=== PATIENT | female | born 1945 | race Caucasian/White ===

== ENCOUNTER 2020-10-30 16:37 | Inpatient (IN) | payer MEDICARE, BC ==
[~2020-10-30] VITALS: Ht 147.3 cm; Wt 64.7 kg
[2020-10-30] MEDS ORDERED: NS 500 ML IV ONE ×2 (16:50→18:25)
[2020-10-30 17:31] LABS: BASO % 0.1 % (0.0-1.0); EOS % 0.1 % (0.0-3.0); HEMATOCRIT 49.2 % (36.0-47.0); HEMOGLOBIN 15.8 g/dl (12.0-15.5); LYMPH % 5.9 % (24.0-44.0); MEAN CORPUSCULAR HEMOGLOBIN 30.1 pg (27.0-33.0); MEAN CORPUSCULAR HGB CONC 32.1 g/dl (32.0-36.5); MEAN CORPUSCULAR VOLUME 93.7 fl (80.0-96.0); MONO # 0.7 10^3/uL (0.0-0.8); MONO % 4.4 % (2.0-8.0); NEUTROPHILS # 14.4 10^3/uL (1.5-8.5); NEUTROPHILS % 89.1 % (36.0-66.0); PLATELET COUNT, AUTOMATED 443 10^3/uL (150-450); RED BLOOD COUNT 5.25 10^6/uL (4.00-5.40); WHITE BLOOD COUNT 16.1 10^3/uL (4.0-10.0)
--- NOTE | 2020-10-30 17:37 | REP ---
INDICATION: gi bleed COMPARISON: 12/01/2006 TECHNIQUE: Portable AP view of the chest FINDINGS: The mediastinum and cardiac silhouette are stable and within normal limits for portable technique. The lung ryan are clear without acute consolidation, effusion, or pneumothorax. Skeletal structures are intact. IMPRESSION: No acute cardiopulmonary process appreciated. <Electronically signed by Lauri Rosas > 10/30/20 [id number]
[2020-10-30 17:46] LABS: INR 0.94; PROTHROMBIN TIME 12.8 SECONDS (12.5-14.3)
[2020-10-30 17:47] LABS: PARTIAL THROMBOPLASTIN TIME 27.5 SECONDS (24.2-38.5)
[2020-10-30 17:59] LABS: ALBUMIN 4.4 GM/DL (3.2-5.2); ALT/SGPT 14 U/L (12-78); AMYLASE 63 U/L (25-115); BILIRUBIN,DIRECT 0.2 MG/DL (0.0-0.2); BILIRUBIN,TOTAL 0.7 MG/DL (0.2-1.0); CK-MB VALUE MASS 2.5 NG/ML (<3.6); CPK CREATINE PHOSPHOKINASE 35 U/L (26-192); LIPASE 70 U/L (73-393); MB/CK RELATIVE INDEX 7.14 (< OR =4); TOTAL PROTEIN 7.7 GM/DL (6.4-8.2); TROPONIN I < 0.02 NG/ML (< 0.10)
[2020-10-30] MEDS ORDERED: CHLO25TA PO (18:01)
[2020-10-30] MEDS ORDERED: MELO15TA28 PO (18:01)
[2020-10-30] MEDS ORDERED: TRAM50TA2 PO (18:01)
[2020-10-30] MEDS ORDERED: PRAV20TA2 PO (18:01)
[2020-10-30] MEDS ORDERED: ACET-683 PO (18:01)
[2020-10-30] MEDS ORDERED: DILT240C82 PO (18:01)
[2020-10-30 18:06] LABS: RSV AMPLIFICATION NEGATIVE (NEGATIVE)
[2020-10-30] MEDS ORDERED: ISOVUE-370 76% 100ML VIAL As Ordered ONE (18:16)
--- NOTE | 2020-10-30 18:37 | REPVR ---
PROCEDURE INFORMATION: Exam: CT Abdomen And Pelvis With Contrast Exam date and time: 10/30/2020 6:13 PM Age: 74 years old Clinical indication: Abdominal pain; Generalized; Additional info: Gi bleeding , lower abdominal pain TECHNIQUE: Imaging protocol: Computed tomography of the abdomen and pelvis with contrast. Radiation optimization: All CT scans at this facility use at least one of these dose optimization techniques: automated exposure control; mA and/or kV adjustment per patient size (includes targeted exams where dose is matched to clinical indication); or iterative reconstruction. Contrast material: ISOVUE 370; Contrast volume: 100 ml; Contrast route: INTRAVENOUS (IV); COMPARISON: No relevant prior studies available. FINDINGS: Mediastinal space: A small sliding hiatal hernia is present. Liver: 6 mm subcapsular cyst posterior right lobe of the liver. There is a diffuse decrease in hepatic parenchymal density, consistent with steatosis. Gallbladder and bile ducts: Normal. No calcified stones. No ductal dilation. Pancreas: Normal. No ductal dilation. Spleen: Normal. No splenomegaly. Adrenal glands: Normal. No mass. Kidneys and ureters: Simple cyst right kidney measures 4.2 cm. Stomach and bowel: There is a diffusely boggy appearance of the distal transverse and proximal left colon with mural stratification and an ahasutral countour. There are pericolonic inflammatory changes. Findings consistent with acute segmental colitis. No abscess demonstrated. Appendix: No evidence of appendicitis. Intraperitoneal space: Unremarkable. No free air. No significant fluid collection. Vasculature: The aortoiliac vessels demonstrate moderate atherosclerotic calcification. Lymph nodes: Unremarkable. No enlarged lymph nodes. Urinary bladder: Unremarkable as visualized. Reproductive: There has been a hysterectomy. Bones/joints: Anterolisthesis of L4 on L5 and L5 on S1. Severe central spinal stenosis L3-L4, L4-L5. Soft tissues: Unremarkable. IMPRESSION: 1. There is a diffuse decrease in hepatic parenchymal density, consistent with steatosis. 2. A small sliding hiatal hernia is present. 3. There has been a hysterectomy. 4. There is a diffusely boggy appearance of the distal transverse and proximal left colon with mural stratification and an ahasutral countour. There are pericolonic inflammatory changes. Findings consistent with acute segmental colitis. No abscess demonstrated. COMMENTS: Consistent with the [employer]'s Incidental Findings Committee white paper (J Am Tanisah Radiol 2018): Any incidental renal lesion less than 1 cm or classified as too small to characterize, or any incidental cystic renal lesion characterized as simple-appearing, is likely benign. No follow-up imaging is recommended for these lesions per consensus recommendations based on imaging criteria. Electronically signed by: Adrien Person On 10/30/2020 18:38:10 PM
[2020-10-30] MEDS ORDERED: metroNIDAZOLE 500 MG in IV 1 EA IV ONE (18:45)
[2020-10-30] MEDS ORDERED: CIPROFLOXACIN 400 MG in IV 1 EA IV ONE (18:45)
[2020-10-30] MEDS ORDERED: fentaNYL 100 MCG/2 ML INJECTION (J3010) IV ONE (19:00)
[2020-10-30] MEDS ORDERED: NS 1,000 ML IV ONE (19:10)
[2020-10-30] MEDS: NS 1,000 ML IV ONE ×2 (19:17→19:19)
[2020-10-30] MEDS ORDERED: MORPHINE 4 MG/ML 1ML VIAL/SYRINGE (J2270) IV PRN (21:10)
[2020-10-30] MEDS ORDERED: MORPHINE 30 MG TAB **MSIR PO PRN (21:10)
[2020-10-30] MEDS ORDERED: ACETAMINOPHEN 500 MG TAB PO PRN (21:10)
[2020-10-30] MEDS ORDERED: SENOKOT S TAB PO PRN (21:10)
[2020-10-30] MEDS ORDERED: PILL CUTTER 1 EACH XX PRN (21:25)
--- NOTE | 2020-10-30 21:43 | HPEPDOC ---
[facility] Medical History & Physical Date of Admission Oct 30, 2020 Date of Service: Oct 30, 2020 History and Physical CHIEF COMPLAINT: Bilateral lower quadrant abdominal pain with bright red blood per rectum this morning HISTORY OF PRESENT ILLNESS: A 74-year-old female with history of diverticulosis, internal hemorrhoids, hiatal hernia from previous colonoscopy and EGD by Dr. Zepeda in 2007 , not on antiplatelet or anticoagulant, but on meloxicam, presents to emergency room with acute onset bilateral lower quadrant abdominal pain described as sharp and feeling like she is about to have a bowel movement intermittent all morning, with generalized headache, decreased appetite, nausea, 2 episodes of vomiting with the first one being food emesis, nonbloody, non-mucousy, nonprojectile, nonbilious, and the second episode with only saliva, without fever , chills, constipation. Patient denied chills, odynophagia, dysphasia, weight loss, coffee-ground emesis, hematemesis, black tarry stools, dizziness, chest pain, pressure, tightness, shortness of breath but admits to feeling weak with chest heaviness in the substernal area radiating up the neck, but not down the arm, without diaphoresis, feeling of impending doom, and without prior history of CAD, DE, congestive heart failure in the past. Patient denied any nonsteroidal anti-inflammatory use and has no prior history of inflammatory bowel disease, or recent acute infectious diarrhea. She drinks both bottled water and treated city/ [place] water, without recent travel, and denies eating uncooked beef or chicken recently. Patient had no prior episode of the above symptoms in the past and has not sought any medical attention until today when she presented to the emergency room. She denies taking any medications at home for the problems above. In the emergency room, patient was found to have leukocytosis with white count of 16.1, but was afebrile with temperature of 99.5, positive for Systemic inflammatory response with sinus tachycardia, ventricular rate of 110, tachypnea with respiratory rate of 24. She was hemodynamically stable stable with blood pressure of 158/75, hemoglobin of 15.8, and not orthostatic. CT abdomen and pelvis showing colitis. Hospitalist was asked to admit the patient for colitis and lower GI bleed. PAST MEDICAL HISTORY: HTN, asthma, dyslipidemia, [id number] spondilolisthesis,cervical multilevel spondylosis, diverticulosis, hemorrhoids, hiatal hernia, fibroid uterus status post hysterectomy, traumatic injury in 2016 with forehead hematoma and skin laceration, right shoulder bone spur, status post resection, 6 mm subcapsular cyst posterior right lobe of the liver. liver steatosis. Simple cyst right kidney measures 4.2 cm. Severe central spinal stenosis L3-L4, L4-L5 PAST SURGICAL HISTORY: EGD/ colonoscopy by Dr. Zepeda 2007. 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 Healthcare proxy is daughter, Ladonna Riggins. Denies alcohol, tobacco or recreational drug use. Lives with her son. last June FAMILY HISTORY: Noncontributory due to advanced age ALLERGIES: Please see below. REVIEW OF SYSTEMS: 10 point review of systems negative aside from positive findings on history of present illness HOME MEDICATIONS: Please see below. PHYSICAL EXAMINATION: VITAL SIGNS: See below GENERAL APPEARANCE: No pallor, cyanosis, or conversational dyspnea. , Awake, alert, oriented to person, place and time. No respiratory distress, able to complete full sentences HEENT: Face is symmetric. Tongue is midline. No JVD, thyromegaly or cervical lymphadenopathy. No stridor. Pupils equally round, reactive to light and accommodation. Extraocular muscles are intact. Moist mucous membranes, No carotid bruit CARDIOVASCULAR: S1, S2, regular rate and rhythm. No murmurs, rubs or gallops. No S3. No carotid bruit LUNGS: Air entry is equal bilaterally. Bronchial breath sounds. No adventitious breath sounds clear to auscultation bilaterally. No use of respiratory accessory muscles. No kyphoscoliosis ABDOMEN: Distended without fluid wave Positive hypoactive bowel sounds, soft , tender bilateral lower quadrants without rebound or guarding. No hepatosplenomegaly. No abdominal bruit EXTREMITIES: No pitting edema, cyanosis or clubbing SKIN: Warm, dry, well perfused, pink in color without cyanosis LABORATORY DATA: See below. MICROBIOLOGY: See below IMAGING: Exam: CT Abdomen And Pelvis With Contrast Exam date and time: 10/30/2020 6:13 PM Age: 74 years old Clinical indication: Abdominal pain; Generalized; Additional info: Gi bleeding , lower abdominal pain TECHNIQUE: Imaging protocol: Computed tomography of the abdomen and pelvis with contrast. Radiation optimization: All CT scans at this facility use at least one of these dose optimization techniques: automated exposure control; mA and/or kV adjustment per patient size (includes targeted exams where dose is matched to clinical indication); or iterative reconstruction. Contrast material: ISOVUE 370; Contrast volume: 100 ml; Contrast route: INTRAVENOUS (IV); COMPARISON: No relevant prior studies available. FINDINGS: Mediastinal space: A small sliding hiatal hernia is present. Liver: 6 mm subcapsular cyst posterior right lobe of the liver. There is a diffuse decrease in hepatic parenchymal density, consistent with steatosis. Gallbladder and bile ducts: Normal. No calcified stones. No ductal dilation. Pancreas: Normal. No ductal dilation. Spleen: Normal. No splenomegaly. Adrenal glands: Normal. No mass. Kidneys and ureters: Simple cyst right kidney measures 4.2 cm. Stomach and bowel: There is a diffusely boggy appearance of the distal transverse and proximal left colon with mural stratification and an ahasutral countour. There are pericolonic inflammatory changes. Findings consistent with acute segmental colitis. No abscess demonstrated. Appendix: No evidence of appendicitis. Intraperitoneal space: Unremarkable. No free air. No significant fluid collection. Vasculature: The aortoiliac vessels demonstrate moderate atherosclerotic calcification. Lymph nodes: Unremarkable. No enlarged lymph nodes. Urinary bladder: Unremarkable as visualized. Reproductive: There has been a hysterectomy. Bones/joints: Anterolisthesis of L4 on L5 and L5 on S1. Severe central spinal stenosis L3-L4, L4-L5. Soft tissues: Unremarkable. IMPRESSION: 1. There is a diffuse decrease in hepatic parenchymal density, consistent with steatosis. 2. A small sliding hiatal hernia is present. 3. There has been a hysterectomy. 4. There is a diffusely boggy appearance of the distal transverse and proximal left colon with mural stratification and an ahasutral countour. There are pericolonic inflammatory changes. Findings consistent with acute segmental colitis. No abscess demonstrated. COMMENTS: Consistent with the [employer]'s Incidental Findings Committee white paper (J Am Tanisha Radiol 2018): Any incidental renal lesion less than 1 cm or classified as too small to characterize, or any incidental cystic renal lesion characterized as simple-appearing, is likely benign. No follow-up imaging is recommended for these lesions per consensus recommendations based on imaging criteria. Electronically signed by: Adrien Person On 10/30/2020 18:38:10 PM Portable AP view of the chest FINDINGS: The mediastinum and cardiac silhouette are stable and within normal limits for portable technique. The lung ryan are clear without acute consolidation, effusion, or pneumothorax. Skeletal structures are intact. IMPRESSION: No acute cardiopulmonary process appreciated. <Electronically signed by Lauri Rosas > 10/30/20 [id number] MICROBIOLOGY: Please see below. ASSESSMENT/PLAN: A 74-year-old female with history of diverticulosis, internal hemorrhoids, hiatal hernia from previous colonoscopy and EGD by Dr. Zepeda in 2007 , not o n antiplatelet or anticoagulant, but on meloxicam, presents to emergency room with acute onset bilateral lower quadrant abdominal pain described as sharp and feeling like she is about to have a bowel movement intermittent all morning, with generalized headache, decreased appetite, nausea, 2 episodes of vomiting with the first one being food emesis, nonbloody, non-mucousy, nonprojectile, nonbilious, and the second episode with only saliva, without fever , chills, constipation. Patient denied chills, odynophagia, dysphasia, weight loss, coffee-ground emesis, hematemesis, black tarry stools, dizziness, chest pain, pressure, tightness, shortness of breath but admits to feeling weak with chest h eaviness in the substernal area radiating up the neck, but not down the arm, without diaphoresis, feeling of impending doom, and without prior history of CAD, DE, congestive heart failure in the past. Patient denied any nonsteroidal anti-inflammatory use and has no prior history of inflammatory bowel disease, or recent acute infectious diarrhea. She drinks both bottled water and treated city[place] water, without recent travel, and denies eating uncooked beef or chicken recently. Patient had no prior episode of the above symptoms in the past and has not sought any medical attention until today when she presented to the emergency room. She denies taking any medications at home for the problems above. In the emergency room, patient was found to have leukocytosis with white count of 16.1, but was afebrile with temperature of 99.5, positive for Systemic inflammatory response with sinus tachycardia, ventricular rate of 110, tachypnea with respiratory rate of 24. She was hemodynamically stable stable with blood pressure of 158/75, hemoglobin of 15.8, and not orthostatic. CT abdomen and pelvis showing colitis. Hospitalist was asked to admit the patient for colitis and lower GI bleed. Acute Colitis -Patient has been started on IV Cipro and Flagyl, clear liquid diet, advance as tolerated, inflammatory bowel disease serology have been sent as well as GI panel to rule out acute infectious diarrhea. Bacid twice a day with meals to decrease risk of Clostridium infection. Gen. Surgery, Dr. Cisneros, has been consulted but no acute indication for emergent colonoscopy. PRN IV and by mouth pain meds Acute LGIBleed -She is currently hemodynamically stable with hemoglobin of 15. Bleeding is most likely due to colitis, but she does have a history of diverticulosis and hemorrhoidal bleeding in the past. No acute indication for RBC transfusion. Despite complaints of generalized weakness and chest heaviness for possible symptomatic anemia, patient has opted to wait for repeat hemoglobin and hematocrit before consenting to red blood cell transfusion. Acute blood loss -She is currently hemodynamically stable with hemoglobin of 15. Secondary to lower GI bleed from acute colitis. No acute indication for RBC transfusion. Gen. surgery has been consulted but no acute indication for emergent colonoscopy.cycle cardiac markers and hemoglobin and hematocrit every 6 hourly. Lactic Acidosis/ SIRS -Supportive care with IV fluids, IV Cipro and Flagyl. Repeat lactic acid serially until normal HTN -Uncontrolled due to pain. Resumed home medications. Nitroglycerin topically every 4 hourly if systolic pressures>160 with continued complaints of nausea, vomiting , and abdominal pain -prn po and IV pain meds. Dyslipidemia -Check lipid profile in the morning Asthma -No acute symptoms. H/o Diverticulosis -Monitor H&H H/o Hemorrhoids -Monitor H&H, transfuse as needed for symptomatic anemia or hemoglobin less than 8 H/o C3-C5 anterior spondylolisthesis/cervical multilevel spondylosis/chronic neck pain -Avoid nonsteroidal anti-inflammatory meds due to acute GI bleed Liver steatosis/liver cyst -Chronic Severe lumbar spinal stenosis -No acute neurologic complaints or signs of cauda equina. Avoid nonsteroidal anti-inflammatory medications for pain. Diet: Clear liquids CODE STATUS: Full code. Healthcare proxy clare Riggins DVT prophylaxis: Compression stockings due to acute GI bleed Vital Signs Vital Signs Date Time Temp Pulse Resp B/P (MAP) Pulse Ox O2 Delivery O2 Flow Rate FiO2 10/30/20 18:27 176/84 (114) 10/30/20 18:22 96 95 10/30/20 16:44 99.5 24 Room Air Laboratory Data Labs 24H Laboratory Tests 2 10/30/20 16:55: Immature Granulocyte % (Auto) 0.4, Neutrophils (%) (Auto) 89.1H, Lymphocytes (%) (Auto) 5.9L, Monocytes (%) (Auto) 4.4, Eosinophils (%) (Auto) 0.1, Basophils (%) (Auto) 0.1, Neutrophils # (Auto) 14.4H, Lymphocytes # (Auto) 1.0L, Monocytes # (Auto) 0.7, Eosinophils # (Auto) 0.0, Basophils # (Auto) 0.0, Nucleated Red Blood Cells % (auto) 0.0, Prothrombin Time 12.8, Prothromb Time International Ratio 0.94, Activated Partial Thromboplast Time 27.5, Lactic Acid Level 3.5*H, Total Bilirubin 0.7, Direct Bilirubin 0.2, Aspartate Amino Transf (AST/SGOT) 13, Alanine Aminotransferase (ALT/SGPT) 14, Alkaline Phosphatase 92, Total Creatine Kinase 35, Creatine Kinase MB 2.5, Creatine Kinase MB Relative Index 7.14H, Troponin I < 0.02, Total Protein 7.7, Albumin 4.4, Albumin/Globulin Ratio 1.3, Amylase Level 63, Lipase 70L, Coronavirus (COVID-19)(PCR) NEGATIVE, Influenza Type A (RT-PCR) NEGATIVE, Influenza Type B (RT-PCR) NEGATIVE, Respiratory Syncytial Virus (PCR) NEGATIVE 10/30/20 17:14: POC Glucose (Misc Panel) 130H, POC Sodium (Misc Panel) 139, POC Potassium (Misc Panel) 3.5, POC Chloride (Misc Panel) 102, POC Total CO2 (Misc Panel) 27.0, POC Blood Urea Nitrogen (Misc Panel 25, POC Ionized Calcium (Misc Panel) 4.7, POC Creatinine (Misc Panel) 0.7, POC Hematocrit (Misc Panel) 51.0 10/30/20 18:32: Urine Color STRAW, Urine Appearance CLEAR, Urine pH 6.0, Urine Specific [place] 1.018, Urine Protein NEGATIVE, Urine Glucose (UA) NEGATIVE, Urine Ketones NEGA TIVE, Urine Blood 2+H, Urine Nitrite NEGATIVE, Urine Bilirubin NEGATIVE, Urine Urobilinogen 0.2, Urine Leukocyte Esterase TRACEH, Urine WBC (Auto) 1, Urine RBC (Auto) 1, Urine Hyaline Casts (Auto) 0, Urine Bacteria (Auto) NEGATIVE, Urine Squamous Epithelial Cells 1, Urine Sperm (Auto) CBC/BMP Laboratory Tests 10/30/20 16:55 Microbiology Microbiology 10/30/20 Urine Culture, Received Pending 10/30/20 Blood Culture, Received Pending 10/30/20 Blood Culture, Received Pending Home Medications Scheduled Chlorthalidone (Chlorthalidone) 25 Mg Tablet, 25 MG PO DAILY Diltiazem HCl (Diltiazem 24Hr ER) 240 Mg Cap.er.24h, 240 MG PO DAILY Meloxicam (Meloxicam) 15 Mg Tablet, 15 MG PO DAILY Pravastatin Sodium (Pravastatin Sodium) 20 Mg Tablet, 20 MG PO QHS Scheduled PRN Acetaminophen (Acetaminophen) 500 Mg Tablet, 500 MG PO Q6H PRN for PAIN TAKES IN BETWEEN TRAMADOL DOSES Tramadol HCl (Tramadol HCl) 50 Mg Tablet, 50 MG PO TID PRN for PAIN Allergies Coded Allergies: No Known Drug Allergies (Verified Allergy, Unknown, 10/30/20) A-FIB/CHADSVASC A-FIB History Current/History of A-Fib/PAF?: No Current PO Anticoag Therapy: No Age/Risk Factor Scoring CHADSVASC: CHADSVASC Response (Comments) Value Age Risk Factor Age >/= 75 years old 2 Gender Risk Factor Female 1 Hx of CHF No 0 Hx of HTN Yes 1 Hx of Stroke/TIA/or VTE No 0 Hx of Diabetes No 0 Hx of Vascular Disease No 0 Total 4 Treatment Treatment ordered: NONE SCHUYLER STERN MD Oct 30, 2020 19:31
[2020-10-30 22:00] VITALS: BP 184/88
[2020-10-30 22:19] VITALS: BP_SYST 183; BP_SYST 184; BP_SYST 189; BP_DIAS 88; BP_DIAS 95
[2020-10-30] MEDS: PRAVASTATIN 20 MG TAB PO SCH (22:32)
[2020-10-30] MEDS: LACTOBACILLUS ACIDOPHILUS CAP (BACID) PO SCH (22:32)
[2020-10-30] MEDS: NITROGLYCERIN 2% OINT 1 GM *U/D* PKT TOP SCH (22:33)
[2020-10-31 00:31] LABS: HEMATOCRIT 44.4 % (36.0-47.0); HEMOGLOBIN 14.3 g/dl (12.0-15.5)
[2020-10-31 01:22] LABS: CK-MB VALUE MASS 7.3 NG/ML (<3.6); CPK CREATINE PHOSPHOKINASE 584 U/L (26-192); MB/CK RELATIVE INDEX 1.25 (< OR =4); TROPONIN I < 0.02 NG/ML (< 0.10)
[2020-10-31 02:00] VITALS: BP_SYST 110; BP_SYST 119; BP_SYST 120; BP_DIAS 56; BP_DIAS 64
[2020-10-31] MEDS: NITROGLYCERIN 2% OINT 1 GM *U/D* PKT TOP SCH ×6 (02:00→22:00)
[2020-10-31] MEDS: ACETAMINOPHEN TAB 650MG DOSE (2X325MG) PO PRN ×3 (02:15→20:55)
[2020-10-31] MEDS: metroNIDAZOLE 500 MG in IV 1 EA IV SCH ×3 (04:59→20:56)
[2020-10-31 06:00] VITALS: BP 128/61
[2020-10-31] MEDS: CIPROFLOXACIN 400 MG in IV 1 EA IV SCH ×2 (06:07→18:35)
--- NOTE | 2020-10-31 06:29 | ECGEPIP ---
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
[2020-10-31 06:30] LABS: BASO # 0.1 10^3/uL (0.0-0.2); BASO % 0.4 % (0.0-1.0); EOS # 0.1 10^3/uL (0.0-0.5); EOS % 0.7 % (0.0-3.0); HEMOGLOBIN 14.6 g/dl (12.0-15.5); LYMPH # 1.7 10^3/uL (1.5-5.0); LYMPH % 13.2 % (24.0-44.0); MEAN CORPUSCULAR HEMOGLOBIN 30.2 pg (27.0-33.0); MEAN CORPUSCULAR HGB CONC 31.7 g/dl (32.0-36.5); MEAN CORPUSCULAR VOLUME 95.2 fl (80.0-96.0); MONO # 1.1 10^3/uL (0.0-0.8); MONO % 8.9 % (2.0-8.0); NEUTROPHILS # 9.6 10^3/uL (1.5-8.5); NEUTROPHILS % 76.4 % (36.0-66.0); RED BLOOD COUNT 4.83 10^6/uL (4.00-5.40); WHITE BLOOD COUNT 12.5 10^3/uL (4.0-10.0)
--- NOTE | 2020-10-31 06:32 | ECGEPIP ---
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
[2020-10-31 06:53] LABS: BLOOD UREA NITROGEN 17 MG/DL (7-18); CARBON DIOXIDE LEVEL 26 MEQ/L (21-32); CHLORIDE LEVEL 107 MEQ/L (98-107); CREATININE FOR GFR 0.84 MG/DL (0.55-1.30); GLOMERULAR FILTRATION RATE > 60.0 (>39); GLUCOSE, FASTING 111 MG/DL (70-100); POTASSIUM SERUM 3.3 MEQ/L (3.5-5.1); SODIUM LEVEL 140 MEQ/L (136-145)
[2020-10-31 07:00] LABS: PLATELET COUNT, AUTOMATED 300 10^3/uL (150-450)
[2020-10-31] MEDS ORDERED: FLUBLOK(EGG FREE)(QUAD)INFLUENZA VACC 0.5ML SYRINGE 18YRS & OLDER IM ONE (09:00)
[2020-10-31] MEDS ORDERED: PREVNAR 13 VACCINE SYRINGE IM ONE (09:00)
[2020-10-31] MEDS: PANTOPRAZOLE 40MG TAB (PROTONIX) PO SCH (09:17)
[2020-10-31] MEDS: LACTOBACILLUS ACIDOPHILUS CAP (BACID) PO SCH ×2 (09:17→18:35)
--- NOTE | 2020-10-31 10:32 | IPNPDOC ---
Text Note Date of Service The patient was seen on 10/31/20. NOTE SUBJECTIVE: -improved abdominal pain -Some blood mixed in with her stool though some has been brown OBJECTIVE: VITAL SIGNS: See below GENERAL APPEARANCE: NAD, Awake, alert, oriented to person, place and time. Speaking in full sentences HEENT:NCAT, EOMI, MMM, No JVD, thyromegaly or cervical lymphadenopathy. CARDIOVASCULAR: S1, S2, regular rate and rhythm. No murmurs, rubs or gallops. No S3. LUNGS: CTAB, no wheezing, rales or rhonchi, breathing comfortably on room air ABDOMEN: Normoactive bowel sounds, soft, mildly distended, tender bilateral lower quadrants without rebound or guarding. No hepatosplenomegaly. EXTREMITIES: No pitting edema, cyanosis or clubbing SKIN: Warm, dry, well perfused, pink in color without cyanosis, no lesions or rashes LABORATORY DATA: See below. Reviewed Hgb 14.6 WBC 12.5 Cr 0.84 GI panel - negative MICROBIOLOGY: See below IMAGING: Exam: CT Abdomen And Pelvis With Contrast Exam date and time: 10/30/2020 6:13 PM Age: 74 years old Clinical indication: Abdominal pain; Generalized; Additional info: Gi bleeding , lower abdominal pain TECHNIQUE: Imaging protocol: Computed tomography of the abdomen and pelvis with contrast. Radiation optimization: All CT scans at this facility use at least one of these dose optimization techniques: automated exposure control; mA and/or kV adjustment per patient size (includes targeted exams where dose is matched to clinical indication); or iterative reconstruction. Contrast material: ISOVUE 370; Contrast volume: 100 ml; Contrast route: INTRAVENOUS (IV); COMPARISON: No relevant prior studies available. FINDINGS: Mediastinal space: A small sliding hiatal hernia is present. Liver: 6 mm subcapsular cyst posterior right lobe of the liver. There is a diffuse decrease in hepatic parenchymal density, consistent with steatosis. Gallbladder and bile ducts: Normal. No calcified stones. No ductal dilation. Pancreas: Normal. No ductal dilation. Spleen: Normal. No splenomegaly. Adrenal glands: Normal. No mass. Kidneys and ureters: Simple cyst right kidney measures 4.2 cm. Stomach and bowel: There is a diffusely boggy appearance of the distal transverse and proximal left colon with mural stratification and an ahasutral countour. There are pericolonic inflammatory changes. Findings consistent with acute segmental colitis. No abscess demonstrated. Appendix: No evidence of appendicitis. Intraperitoneal space: Unremarkable. No free air. No significant fluid collection. Vasculature: The aortoiliac vessels demonstrate moderate atherosclerotic calcification. Lymph nodes: Unremarkable. No enlarged lymph nodes. Urinary bladder: Unremarkable as visualized. Reproductive: There has been a hysterectomy. Bones/joints: Anterolisthesis of L4 on L5 and L5 on S1. Severe central spinal stenosis L3-L4, L4-L5. Soft tissues: Unremarkable. IMPRESSION: 1. There is a diffuse decrease in hepatic parenchymal density, consistent with steatosis. 2. A small sliding hiatal hernia is present. 3. There has been a hysterectomy. 4. There is a diffusely boggy appearance of the distal transverse and proximal left colon with mural stratification and an ahasutral countour. There are pericolonic inflammatory changes. Findings consistent with acute segmental colitis. No abscess demonstrated. COMMENTS: Consistent with the [employer]'s Incidental Findings Committee white paper (J Am Tanisha Radiol 2018): Any incidental renal lesion less than 1 cm or classified as too small to characterize, or any incidental cystic renal lesion characterized as simple-appearing, is likely benign. No follow-up imaging is recommended for these lesions per consensus recommendations based on imaging criteria. Electronically signed by: Adrien Person On 10/30/2020 18:38:10 PM Portable AP view of the chest FINDINGS: The mediastinum and cardiac silhouette are stable and within normal limits for portable technique. The lung ryan are clear without acute consolidation, effusion, or pneumothorax. Skeletal structures are intact. IMPRESSION: No acute cardiopulmonary process appreciated. <Electronically signed by Lauri Rosas > 10/30/20 [id number] MICROBIOLOGY: Please see below. ASSESSMENT/PLAN: A 74-year-old female with history of diverticulosis, internal hemorrhoids, hiatal hernia, previous colonoscopy and EGD by Dr. Zepeda in 2007 who presented to the ED with acute onset bilateral lower quadrant abdominal pain described as sharp and feeling like she is about to have a bowel movement intermittent all morning, with generalized headache, decreased appetite, nausea, 2 episodes of NBNB and found to have leukocytosis with segmental colitis on CT A/P and LGIB. Acute LGIB: suspect 2/2 ongoing colitis. Episodic. -H/H is stable and wnl -daily CBC -treating colitis with fluids, empiric abx and slow reintroduction of PO Segmental colitis: -GI was negative -however given SIRS with significant leukocytosis, will continue cipro/flagyl -Supportive care with IV fluids, -Repeat lactic acid was wnl -PRN antiemetics and pain meds HTN -continue home medications. Asthma -No acute symptoms. Stable H/o Diverticulosis -Monitor H&H H/o Hemorrhoids -Monitor H&H, transfuse as needed for symptomatic anemia or hemoglobin less than 8 H/o C3-C5 anterior spondylolisthesis/cervical multilevel spondylosis/chronic neck pain -Avoid nonsteroidal anti-inflammatory meds Liver steatosis/liver cyst -Chronic Severe lumbar spinal stenosis -No acute neurologic complaints or signs of cauda equina. Avoid nonsteroidal anti-inflammatory medications for pain. Diet: Clear liquids for now CODE STATUS: Full code. Healthcare proxy water Geena Riggins DVT prophylaxis: Compression stockings VS,Fishbone, I+O VS, Fishbone, I+O Laboratory Tests 10/30/20 16:55 10/31/20 00:19 10/31/20 05:57 Vital Signs Date Time Temp Pulse Resp B/P (MAP) Pulse Ox O2 Delivery O2 Flow Rate FiO2 10/31/20 09:03 116/65 10/31/20 09:00 83 10/31/20 06:00 99.1 18 97 Room Air I&O- Last 24 Hours up to 6 AM 10/31/20 06:00 Intake Total 1515 ml Balance 1515 ml MITCHELL VEGA MD Oct 31, 2020 09:24
[2020-10-31] MEDS: traMADol 50 MG TAB PO PRN ×2 (13:21→20:56)
[2020-10-31 14:37] VITALS: BP 115/64
[2020-10-31] MEDS: PRAVASTATIN 20 MG TAB PO SCH (20:55)
[2020-10-31 22:00] VITALS: BP 146/65
[2020-11-01] MEDS: NITROGLYCERIN 2% OINT 1 GM *U/D* PKT TOP SCH ×5 (02:00→18:00)
--- NOTE | 2020-11-01 03:42 | CR.PDOC ---
General Surgery Consultation Date of Consultation 10/31/20 History and Physical CONSULT REPORT FOR: Hospitalist service REASON FOR CONSULTATION: Lower GI bleed HISTORY OF PRESENT ILLNESS: Patient presented to the emergency room with 1 day history of crampy lower abdominal pain, fecal urgency, bloody loose stool as well as mild episode of nausea and vomiting. She was seen in the emergency room and evaluated and noted to have colitis over the distal transverse colon area. She denies any sick contacts, any uncooked foods. Last colonoscopy was in 2007. Since being admitted, seems to have improved with her abdominal pain, not much further bloody bowel movements and stable hemoglobin and hematocrit. PAST MEDICAL HISTORY: 1. . PAST SURGICAL HISTORY: INCLUDES: 1. . PREVIOUS ANESTHESIA REACTIONS: ALLERGIES: Please see below. FAMILY HISTORY: . HOME MEDICATIONS: Please see below. REVIEW OF SYSTEMS: GENERAL: [Denies chills, reports weight gain, reports feeling febrile yesterday]. HEENT: [Denies blurred vision and double vision. Denies ear symptoms. Denies hoarseness]. NECK: Denies any neck pain]. CARDIOVASCULAR: [Denies chest pain and palpitations]. MUSCULOSKELETAL: [Denies arthralgias, back pain and thrombophlebitis]. SKIN: [Denies rash]. NEUROLOGIC: [Denies headache, stroke and transient ischemic attack]. PSYCHIATRIC: [Denies anxiety and depression]. ENDOCRINE: [Denies thyroid disease]. HEMATOLOGY/ONCOLOGY: [Denies bleeding or clotting disorder]. HEART: [Denies any chest pains, palpitations, paroxysmal dyspnea, orthopnea]. PULMONARY: [Denies chronic cough, dyspnea and wheezing]. GASTROINTESTINAL: [Denies rectal bleeding, family history of colon cancer, constipation, diarrhea, dysphagia, heartburn and jaundice]. GENITOURINARY: [Denies dysuria, frequency, hematuria and nocturia]. ENDOCRINE: [Denies polydipsia, polyphagia, polyuria, heat or cold intolerance]. INFECTIOUS: [Denies any recent upper respiratory tract infection, UTI, need for use of antibiotics]. NUTRITION: [Reports good appetite]. PHYSICAL EXAMINATION: VITALS SIGNS: Please see below. GENERAL APPEARANCE:[Patient seen, laying in bed, awake, alert, and oriented. Comfortable, in no acute distress]. SKIN: [Warm and moist]. HEENT: [Normocephalic, atraumatic. Mckee palpebral conjunctiva, anicteric sclerae. Lips and mucosa appear moist]. NECK: [Supple, no thyromegaly. No obvious jugular venous distention]. LUNGS: [Clear to auscultation bilaterally. No wheezing appreciated]. HEART: [No chest wall abnormalities. Regular rate and rhythm with no murmurs appreciated]. ABDOMEN: Abdomen is , soft, . [No hepatosplenomegaly. No umbilical or groin her niations, nondistended. No noticeable rebound or guarding. No grimacing with palpation. No rebound tenderness. No masses appreciated]. EXTREMITIES: [Extremities have no deformities. No edema identified] ANCILLARIES: . LABORATORY DATA: Please see below. IMAGING STUDIES: . IMPRESSION AND PLAN: Colitis, infectious versus ischemic Patient is not showing any signs of severe inflammatory response to this, hemodynamically stable and clinically is improved with IV fluid hydration and antibiotics. No indication for emergent or urgent colonoscopy at this time. Continue treating conservatively at this time. Patient does not really want any colonoscopy if at all. Once clinically improved and increase diet. No surgical intervention needed for this event. Vital Signs Vital Signs Date Time Temp Pulse Resp B/P (MAP) Pulse Ox O2 Delivery O2 Flow Rate FiO2 11/01/20 02:00 128/63 10/31/20 22:00 98.2 98 18 94 Room Air I&Os I&O- Last 24 Hours up to 6 AM 11/01/20 05:59 Intake Total 600 ml Balance 600 ml Laboratory Data Labs 24H Laboratory Tests 2 10/31/20 05:57: Immature Granulocyte % (Auto) 0.4, Neutrophils (%) (Auto) 76.4H, Lymphocytes (%) (Auto) 13.2L, Monocytes (%) (Auto) 8.9H, Eosinophils (%) (Auto) 0.7, Basophils (%) (Auto) 0.4, Neutrophils # (Auto) 9.6H, Lymphocytes # (Auto) 1.7, Monocytes # (Auto) 1.1H, Eosinophils # (Auto) 0.1, Basophils # (Auto) 0.1, Nucleated Red Blood Cells % (auto) 0.0, Anion Gap 7L, Glomerular Filtration Rate > 60.0, Calcium Level 9.0 CBC/BMP Laboratory Tests 10/31/20 05:57 Microbiology Microbiology 10/30/20 Gastrointestinal Tract Panel (PCR) - Final, Complete 10/30/20 Urine Culture - Final, Complete Lactobacillus Species 10/30/20 Blood Culture - Preliminary, Resulted No growth after 24 hours . All specim... 10/30/20 Blood Culture - Preliminary, Resulted No growth after 24 hours . All specim... Home Medications Scheduled Chlorthalidone (Chlorthalidone) 25 Mg Tablet, 25 MG PO DAILY, (Reported) Diltiazem HCl (Diltiazem 24Hr ER) 240 Mg Cap.er.24h, 240 MG PO DAILY, (Reported) Meloxicam (Meloxicam) 15 Mg Tablet, 15 MG PO DAILY, (Reported) Pravastatin Sodium (Pravastatin Sodium) 20 Mg Tablet, 20 MG PO QHS, (Reported) Scheduled PRN Acetaminophen (Acetaminophen) 500 Mg Tablet, 500 MG PO Q6H PRN for PAIN, (Reported) TAKES IN BETWEEN TRAMADOL DOSES Tramadol HCl (Tramadol HCl) 50 Mg Tablet, 50 MG PO TID PRN for PAIN, (Reported) Allergies Coded Allergies: No Known Drug Allergies (Verified Allergy, Unknown, 10/30/20) JADYN SANCHEZ MD Nov 01, 2020 03:42
[2020-11-01] MEDS: metroNIDAZOLE 500 MG in IV 1 EA IV SCH ×2 (05:00→12:30)
[2020-11-01 06:00] VITALS: BP 113/56
[2020-11-01] MEDS: CIPROFLOXACIN 400 MG in IV 1 EA IV SCH (06:03)
[2020-11-01 06:14] LABS: BASO # 0.1 10^3/uL (0.0-0.2); BASO % 0.4 % (0.0-1.0); EOS # 0.3 10^3/uL (0.0-0.5); EOS % 2.1 % (0.0-3.0); HEMATOCRIT 42.4 % (36.0-47.0); HEMOGLOBIN 13.5 g/dl (12.0-15.5); LYMPH % 15.4 % (24.0-44.0); MEAN CORPUSCULAR HEMOGLOBIN 30.3 pg (27.0-33.0); MEAN CORPUSCULAR HGB CONC 31.8 g/dl (32.0-36.5); MEAN CORPUSCULAR VOLUME 95.3 fl (80.0-96.0); MONO # 1.3 10^3/uL (0.0-0.8); MONO % 9.9 % (2.0-8.0); NEUTROPHILS # 9.2 10^3/uL (1.5-8.5); NEUTROPHILS % 71.6 % (36.0-66.0); PLATELET COUNT, AUTOMATED 294 10^3/uL (150-450); RED BLOOD COUNT 4.45 10^6/uL (4.00-5.40); WHITE BLOOD COUNT 12.9 10^3/uL (4.0-10.0)
[2020-11-01 06:33] LABS: BLOOD UREA NITROGEN 13 MG/DL (7-18); CALCIUM LEVEL 8.3 MG/DL (8.8-10.2); CARBON DIOXIDE LEVEL 29 MEQ/L (21-32); CHLORIDE LEVEL 108 MEQ/L (98-107); CREATININE FOR GFR 0.84 MG/DL (0.55-1.30); GLOMERULAR FILTRATION RATE > 60.0 (>39); GLUCOSE, FASTING 94 MG/DL (70-100); POTASSIUM SERUM 3.2 MEQ/L (3.5-5.1); SODIUM LEVEL 142 MEQ/L (136-145)
[2020-11-01] MEDS: LACTOBACILLUS ACIDOPHILUS CAP (BACID) PO SCH ×2 (08:05→18:02)
[2020-11-01] MEDS: PANTOPRAZOLE 40MG TAB (PROTONIX) PO SCH (08:08)
[2020-11-01] MEDS ORDERED: POTASSIUM CHLORIDE 10 MEQ SR TABLET PO ONE (09:00)
[2020-11-01 09:13] LABS: C REACTIVE PROTEIN QUANTITATIV 1.86 MG/DL (0.00-0.30)
--- NOTE | 2020-11-01 11:54 | IPNPDOC ---
Text Note Date of Service The patient was seen on 11/01/20. NOTE General Surgery Dr Cisneros. The patient is a 74-year-old female admitted with a 1 day history of crampy lower abdominal pain, fecal urgency, bloody loose stool as well as mild episode of nausea and vomiting. She was seen in the emergency room and evaluated and noted to have colitis over the distal transverse colon area. Last colonoscopy was in 2007. The patient states she has had some slight cramping overnight but denies abdominal pain otherwise. She has had 1 bowel movement last evening and one this morning brown, diarrhea. The patient reports no further bleeding or blood in the stool. Tolerating soft diet. Afebrile, VSS. Gen. NAD, sitting up in bed. MMM Lungs are clear to auscultation. S1-S2 regular rate and rhythm. Abdomen soft, nondistended, nontender. No guarding or rebound. No grimacing. Extremities well perfused with no edema. WBC 12.9, hemoglobin 13.5, platelet count 294. CRP added to a.m. labs. Assessment/plan Colitis. The patient's symptoms have improved with IV fluid rehydration and antibiotics. Currently the patient is tolerating soft diet. Patient is reviewed and examined as per Dr. Cisneros this morning. CRP added to this a.m.'s labs. Continue with soft diet. No surgical intervention would be recommended at this time. No need for urgent colonoscopy. Continue antibiotics as per hospitalist service. VS,Fishbone, I+O VS, Fishbone, I+O Laboratory Tests 11/01/20 05:32 Vital Signs Date Time Temp Pulse Resp B/P (MAP) Pulse Ox O2 Delivery O2 Flow Rate FiO2 11/01/20 10:00 132/68 11/01/20 08:08 79 11/01/20 06:00 97.7 18 96 Room Air I&O- Last 24 Hours up to 6 AM 11/01/20 06:00 Intake Total 700 ml Balance 700 ml Hilaria Thao Nov 01, 2020 11:54
[2020-11-01] MEDS: traMADol 50 MG TAB PO PRN ×2 (12:32→20:16)
--- NOTE | 2020-11-01 13:16 | IPNPDOC ---
Text Note Date of Service The patient was seen on 11/01/20. NOTE SUBJECTIVE: -improved abdominal pain -1 slighlty blood steaked BM yesterday AM. Unfortunately with escalation of diet has been having nonbloody diarrhea OBJECTIVE: VITAL SIGNS: See below GENERAL APPEARANCE: NAD, Awake, alert, oriented to person, place and time. Speaking in full sentences HEENT:NCAT, EOMI, MMM, No JVD, thyromegaly or cervical lymphadenopathy. CARDIOVASCULAR: S1, S2, regular rate and rhythm. No murmurs, rubs or gallops. No S3. LUNGS: CTAB, no wheezing, rales or rhonchi, breathing comfortably on room air ABDOMEN: Normoactive bowel sounds, soft, soft, mildly tender bilateral lower quadrants without rebound or guarding. No hepatosplenomegaly. EXTREMITIES: No pitting edema, cyanosis or clubbing SKIN: Warm, dry, well perfused, pink in color without cyanosis, no lesions or rashes LABORATORY DATA: See below. Reviewed Hgb 13.5 WBC 12.9 Cr 0.84 K 3.2 (repleted) GI panel - negative UCx - lactobacillus IMAGING: Exam: CT Abdomen And Pelvis With Contrast Exam date and time: 10/30/2020 6:13 PM Age: 74 years old Clinical indication: Abdominal pain; Generalized; Additional info: Gi bleeding , lower abdominal pain TECHNIQUE: Imaging protocol: Computed tomography of the abdomen and pelvis with contrast. Radiation optimization: All CT scans at this facility use at least one of these dose optimization techniques: automated exposure control; mA and/or kV adjustment per patient size (includes targeted exams where dose is matched to clinical indication); or iterative reconstruction. Contrast material: ISOVUE 370; Contrast volume: 100 ml; Contrast route: INTRAVENOUS (IV); COMPARISON: No relevant prior studies available. FINDINGS: Mediastinal space: A small sliding hiatal hernia is present. Liver: 6 mm subcapsular cyst posterior right lobe of the liver. There is a diffuse decrease in hepatic parenchymal density, consistent with steatosis. Gallbladder and bile ducts: Normal. No calcified stones. No ductal dilation. Pancreas: Normal. No ductal dilation. Spleen: Normal. No splenomegaly. Adrenal glands: Normal. No mass. Kidneys and ureters: Simple cyst right kidney measures 4.2 cm. Stomach and bowel: There is a diffusely boggy appearance of the distal transverse and proximal left colon with mural stratification and an ahasutral countour. There are pericolonic inflammatory changes. Findings consistent with acute segmental colitis. No abscess demonstrated. Appendix: No evidence of appendicitis. Intraperitoneal space: Unremarkable. No free air. No significant fluid collection. Vasculature: The aortoiliac vessels demonstrate moderate atherosclerotic calcification. Lymph nodes: Unremarkable. No enlarged lymph nodes. Urinary bladder: Unremarkable as visualized. Reproductive: There has been a hysterectomy. Bones/joints: Anterolisthesis of L4 on L5 and L5 on S1. Severe central spinal stenosis L3-L4, L4-L5. Soft tissues: Unremarkable. IMPRESSION: 1. There is a diffuse decrease in hepatic parenchymal density, consistent with steatosis. 2. A small sliding hiatal hernia is present. 3. There has been a hysterectomy. 4. There is a diffusely boggy appearance of the distal transverse and proximal left colon with mural stratification and an ahasutral countour. There are pericolonic inflammatory changes. Findings consistent with acute segmental colitis. No abscess demonstrated. COMMENTS: Consistent with the [employer]'s Incidental Findings Committee white paper (J Am Tanisha Radiol 2018): Any incidental renal lesion less than 1 cm or classified as too small to characterize, or any incidental cystic renal lesion characterized as simple-appearing, is likely benign. No follow-up imaging is recommended for these lesions per consensus recommendations based on imaging criteria. Electronically signed by: Adrien Person On 10/30/2020 18:38:10 PM Portable AP view of the chest FINDINGS: The mediastinum and cardiac silhouette are stable and within normal limits for portable technique. The lung ryan are clear without acute consolidation, effusion, or pneumothorax. Skeletal structures are intact. IMPRESSION: No acute cardiopulmonary process appreciated. <Electronically signed by Lauri Rosas > 10/30/20 [id number] MICROBIOLOGY: Please see below. ASSESSMENT/PLAN: A 74-year-old female with history of diverticulosis, internal hemorrhoids, hiatal hernia, previous colonoscopy and EGD by Dr. Zepeda in 2007 who presented to the ED with acute onset bilateral lower quadrant abdominal pain described as sharp and feeling like she is about to have a bowel movement int ermittent all morning, with generalized headache, decreased appetite, nausea, 2 episodes of NBNB and found to have leukocytosis with segmental colitis on CT A/P and LGIB. Acute LGIB: suspect 2/2 ongoing colitis. Episodic. -H/H is stable and wnl -daily CBC -treating colitis with fluids, empiric abx and slow reintroduction of PO, now of soft diet Segmental colitis: -GI panel was negative -however given SIRS with significant leukocytosis, will continue cipro/flagyl for now. will switch to PO cipro today -Supportive care with IV fluids -Repeat lactic acid was wnl -PRN antiemetics and pain meds, all PO HTN -continue home medications. Asthma -No acute symptoms. Stable H/o Diverticulosis -Monitor H&H H/o Hemorrhoids -Monitor H&H, transfuse as needed for symptomatic anemia or hemoglobin less than 8 H/o C3-C5 anterior spondylolisthesis/cervical multilevel spondylosis/chronic neck pain -Avoid nonsteroidal anti-inflammatory meds Liver steatosis/liver cyst -Chronic Severe lumbar spinal stenosis -No acute neurologic complaints or signs of cauda equina. Avoid nonsteroidal anti-inflammatory medications for pain. Diet: Clear liquids for now CODE STATUS: Full code. Healthcare proxy [facility] Geena Metzman DVT prophylaxis: Compression stockings VS,Fishbone, I+O VS, Fishbone, I+O Laboratory Tests 11/01/20 05:32 Vital Signs Date Time Temp Pulse Resp B/P (MAP) Pulse Ox O2 Delivery O2 Flow Rate FiO2 11/01/20 08:08 79 141/78 11/01/20 06:00 97.7 18 96 Room Air I&O- Last 24 Hours up to 6 AM 11/01/20 06:00 Intake Total 700 ml Balance 700 ml MITCHELL VEGA MD Nov 01, 2020 08:58
[2020-11-01 14:00] VITALS: BP 126/64
[2020-11-01] MEDS: ACETAMINOPHEN TAB 650MG DOSE (2X325MG) PO PRN ×2 (15:45→20:16)
[2020-11-01] MEDS: CIPROFLOXACIN 500MG TABLET PO SCH (18:02)
[2020-11-01] MEDS: PRAVASTATIN 20 MG TAB PO SCH (20:15)
[2020-11-01 22:00] VITALS: BP 135/70
[2020-11-02 05:34] LABS: BASO % 0.5 % (0.0-1.0); EOS # 0.4 10^3/uL (0.0-0.5); EOS % 4.3 % (0.0-3.0); HEMATOCRIT 44.5 % (36.0-47.0); HEMOGLOBIN 13.9 g/dl (12.0-15.5); LYMPH # 1.7 10^3/uL (1.5-5.0); LYMPH % 21.1 % (24.0-44.0); MEAN CORPUSCULAR HEMOGLOBIN 30.2 pg (27.0-33.0); MEAN CORPUSCULAR HGB CONC 31.2 g/dl (32.0-36.5); MEAN CORPUSCULAR VOLUME 96.7 fl (80.0-96.0); MONO # 0.8 10^3/uL (0.0-0.8); MONO % 9.8 % (2.0-8.0); NEUTROPHILS # 5.2 10^3/uL (1.5-8.5); NEUTROPHILS % 64.2 % (36.0-66.0); PLATELET COUNT, AUTOMATED 276 10^3/uL (150-450); WHITE BLOOD COUNT 8.1 10^3/uL (4.0-10.0)
[2020-11-02] MEDS: traMADol 50 MG TAB PO PRN (05:38)
[2020-11-02] MEDS: CIPROFLOXACIN 500MG TABLET PO SCH (05:38)
[2020-11-02] MEDS: ACETAMINOPHEN TAB 650MG DOSE (2X325MG) PO PRN (05:39)
[2020-11-02 06:03] LABS: BLOOD UREA NITROGEN 11 MG/DL (7-18); CALCIUM LEVEL 8.9 MG/DL (8.8-10.2); CARBON DIOXIDE LEVEL 25 MEQ/L (21-32); CHLORIDE LEVEL 109 MEQ/L (98-107); CREATININE FOR GFR 0.82 MG/DL (0.55-1.30); GLOMERULAR FILTRATION RATE > 60.0 (>39); GLUCOSE, FASTING 122 MG/DL (70-100); POTASSIUM SERUM 3.3 MEQ/L (3.5-5.1); SODIUM LEVEL 142 MEQ/L (136-145)
[2020-11-02 06:12] VITALS: BP 147/78
[2020-11-02] MEDS ORDERED: RISATAB3 PO (08:01)
[2020-11-02] MEDS ORDERED: CIPR-249 PO (08:01)
[2020-11-02 08:15] VITALS: BP 138/65
[2020-11-02] MEDS ORDERED: PANT40TA29 PO (08:22)
[2020-11-02] MEDS: LACTOBACILLUS ACIDOPHILUS CAP (BACID) PO SCH (08:50)
[2020-11-02] MEDS: PANTOPRAZOLE 40MG TAB (PROTONIX) PO SCH (08:50)
[2020-11-02 08:52] VITALS: BP 138/65
--- NOTE | 2020-11-02 12:10 | DS.PDOC ---
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 Known Simple cyst right kidney measuring 4.2 cm. Severe central spinal stenosis L3-L4, L4-L5 with chronic back pain COMPLICATIONS/CHIEF COMPLAINT: Lower Gi Bleed. HISTORY OF PRESENT ILLNESS: A 74-year-old W with a history of diverticulosis, internal hemorrhoids, hiatal hernial, last colonoscopy and EGD by Dr. Zepeda in 2007 , not on antiplatelet or anticoagulant, but on meloxicam, who presented to the emergency room with acute onset bilateral lower quadrant abdominal pain described as sharp and feeling like she was about to have a bowel movement intermittent all morning, with generalized headache, decreased appetite, nausea, 2 episodes of vomiting with the first one being food emesis, nonbloody, non-mucousy, nonprojectile, nonbilious, and the second episode with only saliva, without fever , chills, constipation. She then reported bowel movements that were loose and with bloody elements thereafter.She otherwise denied chills, odynophagia, dysphasia, weight loss, coffee-ground emesis, hematemesis, black tarry stools, dizziness, chest pain, pressure, tightness, shortness of breath. HOSPITAL COURSE: In the emergency room, patient was found to have leukocytosis with white count of 16.1, but was afebrile with temperature of 99.5, positive for Systemic inflammatory response with sinus tachycardia, ventricular rate of 110, tachypnea with respiratory rate of 24. She was hemodynamically stable stable with blood pressure of 158/75, hemoglobin of 15.8, and not orthostatic. CT abdomen and pelvis showed some segmental colitis and was admitted to medicine for LGIB and colitis. She had a GI panel that was negative common pathogens and was placed on IV cipro and flagyl. Surgery was consulted for LGIB and on stable H/H and remission of bleeding, surgery recommended medical management without need for urgent scoping. Her leukocytosis resolved after 2d of antibiotics, symptoms improved but she had some persistent discomfort pre-defecation as she started resuming PO. She was switched to PO cipro that she tolerated well and will now be discharged home to complete a cipro course for 10 more day for the colitis, continue her home tramadol that is sufficient of pain and chronic back pain complaints and protonix given the history of a hiatal hernia. DISCHARGE MEDICATIONS: Please see below. ALLERGIES: Please see below. PHYSICAL EXAMINATION ON DISCHARGE: VITAL SIGNS: Please see below. VITAL SIGNS: See below GENERAL APPEARANCE: NAD, Awake, alert, oriented to person, place and time. Speaking in full sentences HEENT:NCAT, EOMI, MMM, No JVD, thyromegaly or cervical lymphadenopathy. CARDIOVASCULAR: S1, S2, regular rate and rhythm. No murmurs, rubs or gallops. No S3. LUNGS: CTAB, no wheezing, rales or rhonchi, breathing comfortably on room air ABDOMEN: Normoactive bowel sounds, soft, soft, nontender abdomen, without rebound or guarding. No hepatosplenomegaly. EXTREMITIES: No pitting edema, cyanosis or clubbing SKIN: Warm, dry, well perfused, pink in color without cyanosis, no lesions or rashes LABORATORY DATA: Please see below. IMAGING: Exam: CT Abdomen And Pelvis With Contrast Exam date and time: 10/30/2020 6:13 PM Age: 74 years old Clinical indication: Abdominal pain; Generalized; Additional info: Gi bleeding , lower abdominal pain TECHNIQUE: Imaging protocol: Computed tomography of the abdomen and pelvis with contrast. Radiation optimization: All CT scans at this facility use at least one of these dose optimization techniques: automated exposure control; mA and/or kV adjustment per patient size (includes targeted exams where dose is matched to clinical indication); or iterative reconstruction. Contrast material: ISOVUE 370; Contrast volume: 100 ml; Contrast route: INTRAVENOUS (IV); COMPARISON: No relevant prior studies available. FINDINGS: Mediastinal space: A small sliding hiatal hernia is present. Liver: 6 mm subcapsular cyst posterior right lobe of the liver. There is a diffuse decrease in hepatic parenchymal density, consistent with steatosis. Gallbladder and bile ducts: Normal. No calcified stones. No ductal dilation. Pancreas: Normal. No ductal dilation. Spleen: Normal. No splenomegaly. Adrenal glands: Normal. No mass. Kidneys and ureters: Simple cyst right kidney measures 4.2 cm. Stomach and bowel: There is a diffusely boggy appearance of the distal transverse and proximal left colon with mural stratification and an ahasutral countour. There are pericolonic inflammatory changes. Findings consistent with acute segmental colitis. No abscess demonstrated. Appendix: No evidence of appendicitis. Intraperitoneal space: Unremarkable. No free air. No significant fluid collection. Vasculature: The aortoiliac vessels demonstrate moderate atherosclerotic calcification. Lymph nodes: Unremarkable. No enlarged lymph nodes. Urinary bladder: Unremarkable as visualized. Reproductive: There has been a hysterectomy. Bones/joints: Anterolisthesis of L4 on L5 and L5 on S1. Severe central spinal stenosis L3-L4, L4-L5. Soft tissues: Unremarkable. IMPRESSION: 1. There is a diffuse decrease in hepatic parenchymal density, consistent with steatosis. 2. A small sliding hiatal hernia is present. 3. There has been a hysterectomy. 4. There is a diffusely boggy appearance of the distal transverse and proximal left colon with mural stratification and an ahasutral countour. There are pericolonic inflammatory changes. Findings consistent with acute segmental colitis. No abscess demonstrated. COMMENTS: Consistent with the [employer]'s Incidental Findings Committee white paper (J Am Tanisha Radiol 2018): Any incidental renal lesion less than 1 cm or classified as too small to characterize, or any incidental cystic renal lesion characterized as simple-appearing, is likely benign. No follow-up imaging is recommended for these lesions per consensus recommendations based on imaging criteria. Electronically signed by: Adrien Person On 10/30/2020 18:38:10 PM Portable AP view of the chest FINDINGS: The mediastinum and cardiac silhouette are stable and within normal limits for portable technique. The lung ryan are clear without acute consolidation, effusion, or pneumothorax. Skeletal structures are intact. IMPRESSION: No acute cardiopulmonary process appreciated. PROGNOSIS: Good ACTIVITY: As tolerated DIET: regular DISCHARGE PLAN: 10d of cipro, protonic 40mg daily, PCP follow up within 1 week. DISPOSITION: Home DISCHARGE INSTRUCTIONS: 10d of cipro, protonic 40mg daily, PCP follow up within 1 week. ITEMS TO FOLLOWUP ON ON OUTPATIENT: Acute segmental colitis resolution - f/u with PCP DISCHARGE CONDITION: Stable TIME SPENT ON DISCHARGE: 45 minutes. Vital Signs/I&Os Vital Signs Date Time Temp Pulse Resp B/P (MAP) Pulse Ox O2 Delivery O2 Flow Rate FiO2 11/02/20 06:12 97.8 73 17 147/78 (101) 96 Room Air I&O- Last 24 Hours up to 6 AM 11/02/20 06:00 Intake Total 800 ml Balance 800 ml Laboratory Data Labs 24H Laboratory Tests 2 11/02/20 05:17: Immature Granulocyte % (Auto) 0.1, Neutrophils (%) (Auto) 64.2, Lymphocytes (%) (Auto) 21.1L, Monocytes (%) (Auto) 9.8H, Eosinophils (%) (Auto) 4.3H, Basophils (%) (Auto) 0.5, Neutrophils # (Auto) 5.2, Lymphocytes # (Auto) 1.7, Monocytes # (Auto) 0.8, Eosinophils # (Auto) 0.4, Basophils # (Auto) 0.0, Nucleated Red Blood Cells % (auto) 0.0, Anion Gap 8, Glomerular Filtration Rate > 60.0, Calcium Level 8.9 CBC/BMP Laboratory Tests 11/02/20 05:17 Microbiology Microbiology 10/30/20 Gastrointestinal Tract Panel (PCR) - Final, Complete 10/30/20 Urine Culture - Final, Complete Lactobacillus Species 10/30/20 Blood Culture - Preliminary, Resulted No Growth after 48 hours. All Specime... 10/30/20 Blood Culture - Preliminary, Resulted No Growth after 48 hours. All Specime... Discharge Medications Scheduled Chlorthalidone (Chlorthalidone) 25 Mg Tablet, 25 MG PO DAILY, (Reported) Ciprofloxacin HCl (Cipro) 500 Mg Tablet, 500 MG PO BID@06,18 Diltiazem HCl (Diltiazem 24Hr ER) 240 Mg Cap.er.24h, 240 MG PO DAILY, (Reported) L.acidoph/L.bulg/B.bif/S.therm (Khloe-Bid Caplet) 1 Each Tablet, 1 EA PO BIDWM Meloxicam (Meloxicam) 15 Mg Tablet, 15 MG PO DAILY, (Reported) Pantoprazole Sodium (Pantoprazole Sodium) 40 Mg Tablet.dr, 40 MG PO DAILY Pravastatin Sodium (Pravastatin Sodium) 20 Mg Tablet, 20 MG PO QHS, (Reported) Scheduled PRN Acetaminophen (Acetaminophen) 500 Mg Tablet, 500 MG PO Q6H PRN for PAIN, (Reported) TAKES IN BETWEEN TRAMADOL DOSES Tramadol HCl (Tramadol HCl) 50 Mg Tablet, 50 MG PO TID PRN for PAIN, (Reported) Allergies Coded Allergies: No Known Drug Allergies (Verified Allergy, Unknown, 10/30/20) MITCHELL VEGA MD Nov 02, 2020 08:22
== END 2020-11-02 11:41 | disposition home or self-care (01) | DRG 392 ==
LOC: M ED 16:37 → M ED INP 19:08 → ENRESERV 19:33 → M MS5PR 22:07
PROVIDERS: ADMIT General Practice; ATTEND Internal Medicine
DX: K52.9 Noninfective gastroenteritis and colitis, unspecified (principal); D62 Acute posthemorrhagic anemia; E87.2 Acidosis; K64.8 Other hemorrhoids; K44.9 Diaphragmatic hernia without obstruction or gangrene; I10 Essential (primary) hypertension; J45.909 Unspecified asthma, uncomplicated; E78.5 Hyperlipidemia, unspecified; M47.892 Other spondylosis, cervical region; K57.30 Diverticulosis of large intestine without perforation or abscess without bleeding; Z79.899 Other long term (current) drug therapy

== ENCOUNTER 2021-03-28 20:27 | Emergency (ER) | payer BC, MEDICARE ==
[~2021-03-28] VITALS: Ht 144.8 cm; Wt 68.4 kg
[~2021-03-28 20:27] MED LIST: ACET-683 PO; CHLO25TA PO; CIPR-249 PO; DILT240C82 PO; MELO15TA28 PO; PANT40TA29 PO; PRAV20TA2 PO; RISATAB3 PO; TRAM50TA2 PO
[2021-03-28 21:39] LABS: BASO % 0.4 % (0.0-1.0); EOS # 0.2 10^3/uL (0.0-0.5); EOS % 2.9 % (0.0-3.0); HEMATOCRIT 48.7 % (36.0-47.0); HEMOGLOBIN 15.6 g/dl (12.0-15.5); LYMPH # 1.4 10^3/uL (1.5-5.0); LYMPH % 16.8 % (24.0-44.0); MEAN CORPUSCULAR HEMOGLOBIN 29.5 pg (27.0-33.0); MEAN CORPUSCULAR VOLUME 92.1 fl (80.0-96.0); MONO % 12.3 % (2.0-8.0); NEUTROPHILS # 5.4 10^3/uL (1.5-8.5); NEUTROPHILS % 67.4 % (36.0-66.0); PLATELET COUNT, AUTOMATED 297 10^3/uL (150-450); RED BLOOD COUNT 5.29 10^6/uL (4.00-5.40)
[2021-03-28 21:50] LABS: INR 0.94
[2021-03-28 22:11] VITALS: BP 178/87
[2021-03-28] MEDS ORDERED: LABETALOL 100MG/20ML VIAL IV STA (22:11)
[2021-03-28] MEDS ORDERED: ASPIRIN 81 MG CHEW TABLET PO ONE (22:15)
[2021-03-28] MEDS ORDERED: CHLORTHALIDONE 25 MG TAB PO ONE (22:15)
[2021-03-28 22:20] LABS: ALBUMIN 4.3 GM/DL (3.2-5.2); ALT/SGPT 16 U/L (12-78); BILIRUBIN,DIRECT 0.1 MG/DL (0.0-0.2); BILIRUBIN,TOTAL 0.6 MG/DL (0.2-1.0); BLOOD UREA NITROGEN 21 MG/DL (7-18); CALCIUM LEVEL 9.5 MG/DL (8.8-10.2); CARBON DIOXIDE LEVEL 24 MEQ/L (21-32); CHLORIDE LEVEL 109 MEQ/L (98-107); CK-MB VALUE MASS 2.5 NG/ML (<3.6); CPK CREATINE PHOSPHOKINASE 68 U/L (26-192); CREATININE FOR GFR 0.71 MG/DL (0.55-1.30); GLOMERULAR FILTRATION RATE > 60.0 (>39); GLUCOSE, FASTING 96 MG/DL (70-100); LIPASE 96 U/L (73-393); MB/CK RELATIVE INDEX 3.68 (< OR =4); POTASSIUM SERUM 4.4 MEQ/L (3.5-5.1); SODIUM LEVEL 142 MEQ/L (136-145); TOTAL PROTEIN 7.9 GM/DL (6.4-8.2); TROPONIN I < 0.02 NG/ML (< 0.10)
--- NOTE | 2021-03-28 22:45 | REPVR ---
PROCEDURE INFORMATION: Exam: XR Chest Exam date and time: 03/28/2021 9:21 PM Age: 75 years old Clinical indication: Pain; Other: Not specifiied; Additional info: Chest pain TECHNIQUE: Imaging protocol: XR of the chest. Views: 1 view. COMPARISON: CR Chest, 1 view 10/30/2020 5:27 PM FINDINGS: Lungs: There are no interval infiltrates. Pleural spaces: Unremarkable. No pleural effusion. No pneumothorax. Heart/Mediastinum: The heart and mediastinum are unchanged in view of AP and lordotic projection. Diaphragm: Elevation of the right hemidiaphragm is again noted. Bones/joints: Chronic rotator cuff tears of the shoulders bilaterally. IMPRESSION: Stable chest since 10/30/2020. No acute interval process is identified. Electronically signed by: Venkata Poe On 03/28/2021 22:44:47 PM
[2021-03-28 22:54] LABS: APPEARANCE, URINE CLEAR (CLEAR); BACTERIA, URINE AUTO NEGATIVE (NEGATIVE); BILIRUBIN, URINE AUTO NEGATIVE (NEGATIVE); BLOOD, URINE BLOOD NEGATIVE (NEGATIVE); COLOR, URINE STRAW (YELLOW); GLUCOSE, URINE (UA) AUTO NEGATIVE (NEGATIVE); KETONE, URINE AUTO NEGATIVE (NEGATIVE); LEUKOCYTE ESTERASE, URINE AUTO NEGATIVE (NEGATIVE); MUCUS, URINE SMALL (NEGATIVE); NITRITE, URINE AUTO NEGATIVE (NEGATIVE); PROTEIN, URINE AUTO NEGATIVE (NEGATIVE); RBC, URINE AUTO 2 /HPF (0-3); SPECIFIC GRAVITY URINE AUTO 1.008 (1.002-1.035); SQUAMOUS EPITHELIAL CELL UR AU 0 /HPF (0-6); UROBILINOGEN, URINE AUTO 0.2 mg/dL (0.0-2.0); WBC, URINE AUTO 0 /HPF (0-3)
[2021-03-29 00:59] LABS: CK-MB VALUE MASS 2.3 NG/ML (<3.6); CPK CREATINE PHOSPHOKINASE 43 U/L (26-192); MB/CK RELATIVE INDEX 5.35 (< OR =4); TROPONIN I < 0.02 NG/ML (< 0.10)
[2021-03-29 01:45] VITALS: BP 135/78
--- NOTE | 2021-03-29 05:51 | ECGEPIP ---
[facility] - ED Test Date: 2021-03-28 Pat Name: PIERRE VICENTE Department: Room: - Gender: Female [employer]: [facility] : 1945 Requested By: RICCO Jackson Order Number: [id number] Reading MD: Kristopher Morris Measurements Intervals Josephine Rate: 85 P: 26 ME: 150 QRS: -13 QRSD: 62 T: -1 QT: 388 QTc: 461 Interpretive Statements Normal sinus rhythm BASELINE ARTIFACT AFFECTS INTERPRETATION SIMILAR TO 10/30/20 Electronically Signed on 03-29-2021 5:51:12 EDT by Kristopher Morris
== END 2021-03-29 02:10 | disposition home or self-care (01) ==
LOC: M ED 20:27
DX: R07.9 Chest pain, unspecified (principal); R53.1 Weakness; R42 Dizziness and giddiness; I10 Essential (primary) hypertension; J45.909 Unspecified asthma, uncomplicated; E78.5 Hyperlipidemia, unspecified; Z79.899 Other long term (current) drug therapy; Z87.19 Personal history of other diseases of the digestive system

== ENCOUNTER 2021-06-11 13:03 | Emergency (ER) | payer BC ==
[~2021-06-11] VITALS: Ht 144.8 cm; Wt 68.4 kg
--- OUTSIDE RECORDS SUMMARY | 2021-06-11 13:09 | CCD ---
Author Author [facility] Organization [facility] Address Unknown Phone Unavailable Care Team Providers Care Blanket Inspector Name Role Phone Renetta Wilcox MD Unavailable Unavailable Renetta Wilcox MD Unavailable Unavailable Renetta Wilcox MD Unavailable Unavailable Renetta Wilcox MD Unavailable Unavailable Renetta Wilcox MD Unavailable Unavailable Renetta Wilcox MD Unavailable Unavailable Renetta Wilcox MD Unavailable Unavailable Renetta Wilcox MD Unavailable Unavailable Renetta Wilcox MD Unavailable Unavailable Renetta Wilcox MD Unavailable Unavailable Renetta Wilcox MD Unavailable Unavailable Renetta Wilcox MD Unavailable Unavailable Renetta Wilcox MD Unavailable Unavailable Renetta Wilcox MD Unavailable Unavailable Renetta Wilcox MD Unavailable Unavailable Renetta Wilcox MD Unavailable Unavailable Renetta Wilcox MD Unavailable Unavailable Renetta Wilcox MD Unavailable Unavailable Renetta Wilcox MD Unavailable Unavailable Renetta Wilcox MD Unavailable Unavailable Renetta Wilcox MD Unavailable Unavailable Renetta Wilcox MD Unavailable Unavailable Renetta Wilcox MD Unavailable Unavailable Renetta Wilcox MD Unavailable Unavailable Renetta Wilcox MD Unavailable Unavailable Renetta Wilcox MD Unavailable Unavailable Renetta Wilcox MD Unavailable Unavailable Renetta Wilcox MD Unavailable Unavailable Renetta Wilcox MD Unavailable Unavailable Renetta Wilcox MD Unavailable Unavailable Renetta Wilcox MD Unavailable Unavailable Renetta Wilcox MD Unavailable Unavailable Renetta Wilcox MD Unavailable Unavailable Renetta Wilcox MD Unavailable Unavailable Renetta Wilcox MD Unavailable Unavailable Wilcox, Renetta Schaeffer MD Unavailable Unavailable Wilcox, Renetta Schaeffer MD Unavailable Unavailable Wilcox, Renetta Schaeffer MD Unavailable Unavailable Renetta Wilcox MD Unavailable Unavailable Renetta Wilcox MD Unavailable Unavailable Renetta Wilcox MD Unavailable Unavailable Renetta Wilcox MD Unavailable Unavailable Wilcox, Renetta Schaeffer MD Unavailable Unavailable Wilcox, Renetta Schaeffer MD Unavailable Unavailable Wilcox, Renetta Schaeffer MD Unavailable Unavailable Wilcox, Renetta Schaeffer MD Unavailable Unavailable Wilcox, Renetta Schaeffer MD Unavailable Unavailable Wilcox, Renetta Schaeffer MD Unavailable Unavailable Wilcox, Renetta Schaeffer MD Unavailable Unavailable Renetta Wilcox MD Unavailable Unavailable Renetta Wilcox MD Unavailable Unavailable Wilcox, Renetta Schaeffer MD Unavailable Unavailable Wilcox, Renetta Schaeffer MD Unavailable Unavailable Wilcox, Renetta Schaeffer MD Unavailable Unavailable Wilcox, Renetta Schaeffer MD Unavailable Unavailable Wilcox, Renetta Schaeffer MD Unavailable Unavailable Wilcox, Renetta Schaeffer MD Unavailable Unavailable Renetta Wilcox MD Unavailable Unavailable Renetta Wilcox MD Unavailable Unavailable Renetta Wilcox MD Unavailable Unavailable Renetta Wilcox MD Unavailable Unavailable Renetta Wilcox MD Unavailable Unavailable Wilcox, Renetta Schaeffer MD Unavailable Unavailable WilcoxRenetta MD Unavailable Unavailable WilcoxRenetta MD Unavailable Unavailable WilcoxRenetta MD Unavailable Unavailable Renetta Wilcox MD Unavailable Unavailable Renetta Wilcox MD Unavailable Unavailable Renetta Wilcox MD Unavailable Unavailable Renetta Wilcox MD Unavailable Unavailable Renetta Wilcox MD Unavailable Unavailable Renetta Wilcox MD Unavailable Unavailable Renetta Wilcox MD Unavailable Unavailable Renetta Wilcox MD Unavailable Unavailable Renetta Wilcox MD Unavailable Unavailable Renetta Wilcox MD Unavailable Unavailable Renetta Wilcox MD Unavailable Unavailable Renetta Wilcox MD Unavailable Unavailable Renetta Wilcox MD Unavailable Unavailable eRnetta Wilcox MD Unavailable Unavailable Renetta Wilcox MD Unavailable Unavailable Renetta Wilcox MD Unavailable Unavailable Renetta Wilcox MD Unavailable Unavailable Renetta Wilcox MD Unavailable Unavailable Renetta Wilcox MD Unavailable Unavailable Renetta Wilcox MD Unavailable Unavailable Renetta Wilcox MD Unavailable Unavailable Renetta Wilcox MD Unavailable Unavailable Renetta Wilcox MD Unavailable Unavailable Renetta Wilcox MD Unavailable Unavailable Renetta Wilcox MD Unavailable Unavailable Renetta Wilcox MD Unavailable Unavailable Renetta Wilcox MD Unavailable Unavailable Jovanni, A Fany IN STORE MARKETING REPRESENTATIVE Unavailable Unavailable Jovanni, A Fany IN STORE MARKETING REPRESENTATIVE Unavailable Unavailable Jovanni, A Fany IN STORE MARKETING REPRESENTATIVE Unavailable Unavailable Jovanni, A Fany IN STORE MARKETING REPRESENTATIVE Unavailable Unavailable Jovanni, A Fany IN STORE MARKETING REPRESENTATIVE Unavailable Unavailable Jovanni, A Fany IN STORE MARKETING REPRESENTATIVE Unavailable Unavailable Jovanni, A Fany IN STORE MARKETING REPRESENTATIVE Unavailable Unavailable Jovanni, A Fany IN STORE MARKETING REPRESENTATIVE Unavailable Unavailable Jovanni, A Fany IN STORE MARKETING REPRESENTATIVE Unavailable Unavailable Jovanni, A Fany IN STORE MARKETING REPRESENTATIVE Unavailable Unavailable Jovanni, A Fany IN STORE MARKETING REPRESENTATIVE Unavailable Unavailable Jovanni, A Fany IN STORE MARKETING REPRESENTATIVE Unavailable Unavailable Jovanni, A Fany IN STORE MARKETING REPRESENTATIVE Unavailable Unavailable Jovanni, A Fany IN STORE MARKETING REPRESENTATIVE Unavailable Unavailable Jovanni, A Fany IN STORE MARKETING REPRESENTATIVE Unavailable Unavailable Jovanni, A Fany IN STORE MARKETING REPRESENTATIVE Unavailable Unavailable Jovanni, A Fany IN STORE MARKETING REPRESENTATIVE Unavailable Unavailable Jovanni, A Fany IN STORE MARKETING REPRESENTATIVE Unavailable Unavailable Jovanni, A Fany IN STORE MARKETING REPRESENTATIVE Unavailable Unavailable Jovanni, A Fany IN STORE MARKETING REPRESENTATIVE Unavailable Unavailable Jovanni, A Fany IN STORE MARKETING REPRESENTATIVE Unavailable Unavailable Jovanni, A Fany IN STORE MARKETING REPRESENTATIVE Unavailable Unavailable Jovanni, A Fany IN STORE MARKETING REPRESENTATIVE Unavailable Unavailable Jovanni, A Fany IN STORE MARKETING REPRESENTATIVE Unavailable Unavailable Jovanni, A Fany IN STORE MARKETING REPRESENTATIVE Unavailable Unavailable Jovanni, A Fany IN STORE MARKETING REPRESENTATIVE Unavailable Unavailable Jovanni, A Fany IN STORE MARKETING REPRESENTATIVE Unavailable Unavailable Jovanni, A Fany IN STORE MARKETING REPRESENTATIVE Unavailable Unavailable Jovanni, A Fany IN STORE MARKETING REPRESENTATIVE Unavailable Unavailable Jovanni, A Fany IN STORE MARKETING REPRESENTATIVE Unavailable Unavailable Jovanni, A Fany IN STORE MARKETING REPRESENTATIVE Unavailable Unavailable Jovanni, A Fany IN STORE MARKETING REPRESENTATIVE Unavailable Unavailable Jovanni, A Fany IN STORE MARKETING REPRESENTATIVE Unavailable Unavailable Jovanni, A Fany IN STORE MARKETING REPRESENTATIVE Unavailable Unavailable Jovanni, A Fany IN STORE MARKETING REPRESENTATIVE Unavailable Unavailable Jovanni, A Fany IN STORE MARKETING REPRESENTATIVE Unavailable Unavailable Jovanni, A Fany IN STORE MARKETING REPRESENTATIVE Unavailable Unavailable Jovanni, A Fany IN STORE MARKETING REPRESENTATIVE Unavailable Unavailable Jovanni, A Fany IN STORE MARKETING REPRESENTATIVE Unavailable Unavailable Jovanni, A Fany IN STORE MARKETING REPRESENTATIVE Unavailable Unavailable Jovanni, A Fany IN STORE MARKETING REPRESENTATIVE Unavailable Unavailable Jovanni, A Fany IN STORE MARKETING REPRESENTATIVE Unavailable Unavailable Jovanni, A Fany IN STORE MARKETING REPRESENTATIVE Unavailable Unavailable Jovanni, A Fany IN STORE MARKETING REPRESENTATIVE Unavailable Unavailable Jovanni, A Fany IN STORE MARKETING REPRESENTATIVE Unavailable Unavailable Jovanni, A Fany IN STORE MARKETING REPRESENTATIVE Unavailable Unavailable Re-disclosure Warning The records that you are about to access may contain information from federally-assisted alcohol or drug abuse programs. If such information is present, then the following federally mandated warning applies: This information has been disclosed to you from records protected by federal confidentiality rules (42 CFR part 2). The federal rules prohibit you from making any further disclosure of this information unless further disclosure is expressly permitted by the written consent of the person to whom it pertains or as otherwise permitted by 42 CFR part 2. A general authorization for the release of medical or other information is NOT sufficient for this purpose. The Federal rules restrict any use of the information to criminally investigate or prosecute any alcohol or drug abuse patient.The records that you are about to access may contain highly sensitive health information, the redisclosure of which is protected by Article 27-F of the [facility] Public Health law. If you continue you may have access to information: Regarding HIV / AIDS; Provided by facilities licensed or operated by the [facility] Office of Mental Health; or Provided by the [facility] Office for People With Developmental Disabilities. If such information is present, then the following [facility] mandated warning applies: This information has been disclosed to you from confidential records which are protected by state law. State law prohibits you from making any further disclosure of this information without the specific written consent of the person to whom it pertains, or as otherwise permitted by law. Any unauthorized further disclosure in violation of state law may result in a fine or [place] [facility] sentence or both. A general authorization for the release of medical or other information is NOT sufficient authorization for further disc losure. Allergies and Adverse Reactions Type Description Substance Reaction Status Data Source(s ) Food allergy No Known Food Allergies No Known Food Allergies [facility] Drug allergy ciprofloxacin Ciprofloxacin rash head to toe SV [facility] Family History Family Member Name Family Member Gender Family Member Status Date o f Status Description Data Source(s) Unknown Condition [facility] Unknown Condition [facility] Unknown Condition [facility] Unknown Condition [facility] Encounters Encounter Providers Location Date Indications Data Source(s ) Outpatient Attender: Fany Baig NP 05/31/2021 11:41:00 AM EDT R25.2,I10 [facility] R25.2,I10 Outpatient Attender: Fany Baig NPReferrer: Fany segal NP 05/11/2021 12:53:00 PM EDT - 05/11/2021 01:44:00 PM EDT [facility] Outpatient Attender: Fany Baig NPReferrer: Fany segal NP 03/31/2021 12:54:00 PM EDT - 03/31/2021 02:22:00 PM EDT [facility] Outpatient Attender: Fany Baig NPReferrer: Fany segal IN STORE MARKETING REPRESENTATIVE 11/08/2020 02:10:00 PM EDT - 11/08/2020 02:41:00 PM EDT [facility] Outpatient Attender: Fany Jovanni IN STORE MARKETING REPRESENTATIVE 05/04/2020 11:38:00 AM EDT I10,R13.10 [facility] I10,R13.10 Outpatient Attender: Fany Baig NPReferrer: Maksim Wilcox MD 05/04/2020 10:42:00 AM EDT - 05/04/2020 11:33:00 AM EDT [facility] Immunizations Vaccine Date Status Description Data Source(s) COVID-19 VACCINE Moderna 11/19/2020 12:00:00 AM EDT completed [facility] Vaccine Series Complete: YESThis Data wa s Submitted to [facility] Via [employer]. COVID-19 VACCINE Moderna 10/08/2020 12:00:00 AM EST completed [facility] Vaccine Series Complete: NOThis Data was Submitted to [facility] [employer]. Medications Medication Brand Name Start Date Product Form Dose Route Admi nistrative Instructions Pharmacy Instructions Status Indications Reaction Description Data Source(s) 24 HR Diltiazem Hydrochloride 240 MG Extended Release Oral Capsule DILTIAZEM HCL 06/05/2021 12:00:00 AM EDT capsule,extended release 24hr 90 TAKE ONE CAPSULE BY MOUTH EVERY DAY TAKE ONE CAPSULE BY MOUTH EVERY DAY SOLD: 06/07/2021 [facility] meloxicam 7.5 MG Oral Tablet MELOXICAM 06/01/2021 12:00:00 AM EDT tabl et 30 TAKE ONE TABLET BY MOUTH EVERY DAY TAKE ONE TABLET BY MOUTH EVERY DAY SOLD: 06/07/2021 [facility] 25 mg 05/10/2021 12:00:00 AM EDT tablet 90 TAKE ONE TABLET BY MOUTH EVERY DAY TAKE ONE TABLET BY MOUTH EVERY DAY SOLD: 05/12/2021 [facility] 15 mg 04/23/2021 12:00:00 AM EDT tablet 90 TAKE ONE TABLET BY MOUTH EVERY DAY TAKE ONE TABLET BY MOUTH EVERY DAY SOLD: 04/25/2021 [facility] 50 mg 04/23/2021 12:00:00 AM EDT tablet 90 TAKE ONE TABLET BY MOUTH THREE TIMES A DAY NEEDED - MAXIMUM DAILY DOSE = 3 TAKE ONE TABLET BY MOUTH THREE TIMES A DAY NEEDED - MAXIMUM DAILY DOSE = 3 SOLD: 04/25/2021 [facility] 50 mg 04/23/2021 12:00:00 AM EDT tablet 90 TAKE ONE TABLET BY MOUTH THREE TIMES A DAY NEEDED - MAXIMUM DAILY DOSE = 3 TAKE ONE TABLET BY MOUTH THREE TIMES A DAY NEEDED - MAXIMUM DAILY DOSE = 3 SOLD: 05/28/2021 [facility] meloxicam 15 MG Oral Tablet Meloxicam Meloxicam 12/27/2020 02:40 :48 PM EDT 15 MG active [facility] tramadol hydrochloride 50 MG Oral Tablet Tramadol Tramadol 12/27/2020 02:40:41 PM EDT 50 MG active [facility] 15 mg 12/27/2020 12:00:00 AM EDT tablet 90 TAKE ONE TABLET BY MOUTH EVERY DAY TAKE ONE TABLET BY MOUTH EVERY DAY SOLD: 12/30/2020 [facility] 50 mg 12/27/2020 12:00:00 AM EDT tablet 90 TAKE ONE TABLET BY MOUTH THREE TIMES A DAY NEEDED MAXIMUM DAILY DOSE = 3 TAKE ONE TABLET BY MOUTH THREE TIMES A DAY NEEDED MAXIMUM DAILY DOSE = 3 SOLD: 03/25/2021 [facility] 50 mg 12/27/2020 12:00:00 AM EDT tablet 90 TAKE ONE TABLET BY MOUTH THREE TIMES A DAY NEEDED MAXIMUM DAILY DOSE = 3 TAKE ONE TABLET BY MOUTH THREE TIMES A DAY NEEDED MAXIMUM DAILY DOSE = 3 SOLD: 02/03/2021 [facility] 50 mg 12/27/2020 12:00:00 AM EDT tablet 90 TAKE ONE TABLET BY MOUTH THREE TIMES A DAY NEEDED MAXIMUM DAILY DOSE = 3 TAKE ONE TABLET BY MOUTH THREE TIMES A DAY NEEDED MAXIMUM DAILY DOSE = 3 SOLD: 12/30/2020 [facility] Metronidazole 500 MG Oral Tablet Metronidazole 11/11/2020 01:45:09 PM EDT 500 MG [facility] Metronidazole 500 MG Oral Tablet METRONIDAZOLE 11/11/2020 12:0 0:00 AM EDT tablet 14 TAKE ONE TABLET BY MOUTH TWICE A DAY 7 TAKE ONE TABLET BY MOUTH TWICE A DAY 7 SOLD: 11/12/2020 [facility] Chlorthalidone 25 MG Oral Tablet Chlorthalidone 11/09/2020 01:57:15 PM EDT 25 MG active [facility] 25 mg 11/09/2020 12:00:00 AM EDT tablet 45 TAKE ONE-HALF TABLET BY MOUTH EVERY DAY TAKE ONE-HALF TABLET BY MOUTH EVERY DAY SOLD: 11/12/2020 [facility] 25 mg 11/09/2020 12:00:00 AM EDT tablet 45 TAKE ONE-HALF TABLET BY MOUTH EVERY DAY TAKE ONE-HALF TABLET BY MOUTH EVERY DAY SOLD: 04/08/2021 [facility] Brenden-SWuTherm (Khloe-Bid) 1 billion cell- 25 0 mg tablet 11/08/2020 02:14:54 PM EDT active [facility] Ruiz-JaiBif-S.Therm (Khloe-Bid) 1 billion cell- 25 0 mg tablet 11/08/2020 02:14:54 PM EDT active [facility] pantoprazole 40 MG Delayed Release Oral Tablet Pantoprazole Pantoprazole 11/08/2020 02:14:45 PM EDT active [facility] pantoprazole 40 MG Delayed Release Oral Tablet Pantoprazole Pantoprazole 11/08/2020 02:14:45 PM EDT active [facility] Ciprofloxacin Hcl 11/08/2020 02:14:26 PM EDT active [facility] Ciprofloxacin Hcl 11/08/2020 02:14:26 PM EDT completed [facility] 1 billion cell- 250 mg 11/02/2020 12:00:00 AM EST tablet 30 TAKE ONE TABLET BY MOUTH TWICE A DAY WITH MEALS TAKE ONE TABLET BY MOUTH TWICE A DAY WITH MEALS SOLD: 12/16/2020 [facility] 500 mg 11/02/2020 12:00:00 AM EST tablet 20 TAKE ONE TABLET BY MOUTH TWICE A DAY AT 0600 AND 1800 TAKE ONE TABLET BY MOUTH TWICE A DAY AT 0600 AND 1800 SOLD: 11/02/2020 [facility] 1 billion cell- 250 mg 11/02/2020 12:00:00 AM EST tablet 60 TAKE ONE TABLET BY MOUTH TWICE A DAY WITH MEALS TAKE ONE TABLET BY MOUTH TWICE A DAY WITH MEALS SOLD: 11/02/2020 [facility] pantoprazole 40 MG Delayed Release Oral Tablet PANTOPRAZOLE SODIUM 11/02/2020 12:00:00 AM EST tablet,delayed release (DR/EC) 30 T KATHLEEN ONE TABLET BY MOUTH EVERY DAY TAKE ONE TABLET BY MOUTH EVERY DAY SOLD: 11/03/2020 [facility] meloxicam 15 MG Oral Tablet Meloxicam Meloxicam 09/06/2020 03:01 :42 PM EST 15 MG completed [facility] meloxicam 15 MG Oral Tablet Meloxicam Meloxicam 09/06/2020 03:01 :42 PM EST 15 MG active [facility] tramadol hydrochloride 50 MG Oral Tablet Tramadol Tramadol 09/06/2020 07:44:32 AM EST 50 MG active [facility] tramadol hydrochloride 50 MG Oral Tablet Tramadol Tramadol 09/06/2020 07:44:32 AM EST 50 MG completed [facility] 50 mg 09/06/2020 12:00:00 AM EST tablet 90 TAKE ONE TABLET BY MOUTH THREE TIMES A DAY NEEDED MAXIMUM DAILY DOSE = 3 TABLETS TAKE ONE TABLET BY MOUTH THREE TIMES A DAY NEEDED MAXIMUM DAILY DOSE = 3 TABLETS SOLD: 11/23/2020 [facility] 15 mg 09/06/2020 12:00:00 AM EST tablet 90 TAKE ONE TABLET BY MOUTH EVERY DAY TAKE ONE TABLET BY MOUTH EVERY DAY SOLD: 09/09/2020 [facility] 50 mg 09/06/2020 12:00:00 AM EST tablet 90 TAKE ONE TABLET BY MOUTH THREE TIMES A DAY NEEDED MAXIMUM DAILY DOSE = 3 TABLETS TAKE ONE TABLET BY MOUTH THREE TIMES A DAY NEEDED MAXIMUM DAILY DOSE = 3 TABLETS SOLD: 10/22/2020 [facility] 50 mg 09/06/2020 12:00:00 AM EST tablet 90 TAKE ONE TABLET BY MOUTH THREE TIMES A DAY NEEDED MAXIMUM DAILY DOSE = 3 TABLETS TAKE ONE TABLET BY MOUTH THREE TIMES A DAY NEEDED MAXIMUM DAILY DOSE = 3 TABLETS SOLD: 09/09/2020 [facility] tramadol hydrochloride 50 MG Oral Tablet Tramadol Tramadol 05/04/2020 11:34:37 AM EDT 50 MG completed [facility] tramadol hydrochloride 50 MG Oral Tablet Tramadol Tramadol 05/04/2020 11:34:37 AM EDT 50 MG completed [facility] Pravastatin Sodium 20 MG Oral Tablet Pravastatin 05/04/2020 11:34: 13 AM EDT 20 MG active [facility] Pravastatin Sodium 20 MG Oral Tablet Pravastatin 05/04/2020 11:34: 13 AM EDT 20 MG active [facility] meloxicam 15 MG Oral Tablet Meloxicam Meloxicam 05/04/2020 11:34 :03 AM EDT 15 MG completed [facility] meloxicam 15 MG Oral Tablet Meloxicam Meloxicam 05/04/2020 11:34 :03 AM EDT 15 MG completed [facility] 24 HR Diltiazem Hydrochloride 240 MG Ext ended Release Oral Capsule Diltiazem Hcl (Cardizem Cd) 240 mg capsule,extended release 24hr Diltiazem Hcl (Cardizem Cd) 240 mg capsule,extended release 24hr 05/04/2020 11:33:56 AM EDT 240 MG active [facility] 24 HR Diltiazem Hydrochloride 240 MG Ext ended Release Oral Capsule Diltiazem Hcl (Cardizem Cd) 240 mg capsule,extended release 24hr Diltiazem Hcl (Cardizem Cd) 240 mg capsule,extended release 24hr 05/04/2020 11:33:56 AM EDT 240 MG active [facility] Estrogens, Conjugated (MCC) 0.625 MG/ML Vaginal Cream Conjugated Estrogens Conjugated Estrogens 05/04/2020 11:33:52 AM EDT 0.3125 MG active [facility] Estrogens, Conjugated (MCC) 0.625 MG/ML Vaginal Cream Conjugated Estrogens Conjugated Estrogens 05/04/2020 11:33:52 AM EDT 0.3125 MG active [facility] Omeprazole Magnesium 05/04/2020 11:32:47 AM EDT 20 MG [facility] Omeprazole Magnesium 05/04/2020 11:32:47 AM EDT 20 MG [facility] Omeprazole Magnesium 05/04/2020 11:32:47 AM EDT 20 MG active [facility] 50 mg 05/04/2020 12:00:00 AM EDT tablet 90 TAKE ONE TABLET BY MOUTH THREE TIMES A DAY NEEDED, MAXIMUM DAILY DOSE = 3 TAKE ONE TABLET BY MOUTH THREE TIMES A DAY NEEDED, MAXIMUM DAILY DOSE = 3 SOLD: 05/05/2020 [facility] 24 HR Diltiazem Hydrochloride 240 MG Extended Release Oral Capsule DILTIAZEM HCL 05/04/2020 12:00:00 AM EDT capsule,extended release 24hr 90 TAKE ONE CAPSULE BY MOUTH EVERY DAY TAKE ONE CAPSULE BY MOUTH EVERY DAY SOLD: 12/16/2020 [facility] 24 HR Diltiazem Hydrochloride 240 MG Extended Release Oral Capsule DILTIAZEM HCL 05/04/2020 12:00:00 AM EDT capsule,extended release 24hr 90 TAKE ONE CAPSULE BY MOUTH EVERY DAY TAKE ONE CAPSULE BY MOUTH EVERY DAY SOLD: 09/02/2020 [facility] 20 mg 05/04/2020 12:00:00 AM EDT capsule,delayed release (DR/EC) 180 TAKE ONE CAPSULE BY MOUTH TWICE A DAY TAKE ONE CAPSULE BY MOUTH TWICE A DAY SOLD: 03/25/2021 [facility] 20 mg 05/04/2020 12:00:00 AM EDT capsule,delayed release (DR/EC) 180 TAKE ONE CAPSULE BY MOUTH TWICE A DAY TAKE ONE CAPSULE BY MOUTH TWICE A DAY SOLD: 05/05/2020 [facility] 20 mg 05/04/2020 12:00:00 AM EDT tablet 90 TAKE ONE TABLET BY MOUTH EVERY DAY TAKE ONE TABLET BY MOUTH EVERY DAY SOLD: 04/08/2021 [facility] 240 mg 05/04/2020 12:00:00 AM EDT capsule,extended releas e 24hr 90 TAKE ONE CAPSULE BY MOUTH EVERY DAY TAKE ONE CAPSULE BY MOUTH EVERY DAY SOLD: 05/05/2020 [facility] 50 mg 05/04/2020 12:00:00 AM EDT tablet 90 TAKE ONE TABLET BY MOUTH THREE TIMES A DAY NEEDED, MAXIMUM DAILY DOSE = 3 TAKE ONE TABLET BY MOUTH THREE TIMES A DAY NEEDED, MAXIMUM DAILY DOSE = 3 SOLD: 07/30/2020 [facility] 15 mg 05/04/2020 12:00:00 AM EDT tablet 90 TAKE ONE TABLET BY MOUTH EVERY DAY TAKE ONE TABLET BY MOUTH EVERY DAY SOLD: 05/05/2020 [facility] 20 mg 05/04/2020 12:00:00 AM EDT tablet 90 TAKE ONE TABLET BY MOUTH EVERY DAY TAKE ONE TABLET BY MOUTH EVERY DAY SOLD: 05/05/2020 [facility] 24 HR Diltiazem Hydrochloride 240 MG Extended Release Oral Capsule DILTIAZEM HCL 05/04/2020 12:00:00 AM EDT capsule,extended release 24hr 90 TAKE ONE CAPSULE BY MOUTH EVERY DAY TAKE ONE CAPSULE BY MOUTH EVERY DAY SOLD: 03/25/2021 [facility] 0.625 mg/gram 05/04/2020 12:00:00 AM EDT cream 30 INSERT 1/2 APPLICATORFUL VAGINALLY EVERY EVENING INSERT 1/2 APPLICATORFUL VAGINALLY EVERY EVENING SOLD: 05/05/2020 [facility] 50 mg 05/04/2020 12:00:00 AM EDT tablet 90 TAKE ONE TABLET BY MOUTH THREE TIMES A DAY NEEDED, MAXIMUM DAILY DOSE = 3 TAKE ONE TABLET BY MOUTH THREE TIMES A DAY NEEDED, MAXIMUM DAILY DOSE = 3 SOLD: 06/07/2020 [facility] tramadol hydrochloride 50 MG Oral Tablet Tramadol Tramadol 01/02/2020 08:47:31 AM EDT 50 MG completed [facility] tramadol hydrochloride 50 MG Oral Tablet Tramadol Tramadol 01/02/2020 08:47:31 AM EDT 50 MG completed [facility] meloxicam 15 MG Oral Tablet Meloxicam Meloxicam 12/30/2019 04:13 :49 PM EDT 15 MG completed [facility] meloxicam 15 MG Oral Tablet Meloxicam Meloxicam 12/30/2019 04:13 :49 PM EDT 15 MG completed [facility] Azithromycin (Zithromax) 250 mg tablet 11/21/2019 12:47:52 PM ED T 0 completed [facility] Azithromycin (Zithromax) 250 mg tablet 11/21/2019 12:47:52 PM ED T 0 completed [facility] Azithromycin (Zithromax) 250 mg tablet 11/21/2019 12:47:52 PM ED T 0 completed [facility] Pravastatin Sodium 20 MG Oral Tablet Pravastatin 09/18/2019 11:02: 02 AM EST 20 MG completed [facility] Pravastatin Sodium 20 MG Oral Tablet Pravastatin 09/18/2019 11:02: 02 AM EST 20 MG completed [facility] Ranitidine 150 MG Oral Capsule Ranitidine Hcl Ranitidine Hcl 09/18/2019 11:01:57 AM EST 150 MG completed [facility] Ranitidine 150 MG Oral Capsule Ranitidine Hcl Ranitidine Hcl 09/18/2019 11:01:57 AM EST 150 MG completed [facility] Ranitidine 150 MG Oral Capsule Ranitidine Hcl Ranitidine Hcl 09/18/2019 11:01:57 AM EST 150 MG completed [facility] Estrogens, Conjugated (MCC) 0.625 MG/ML Vaginal Cream Conjugated Estrogens Conjugated Estrogens 04/21/2019 11:33:16 AM EDT 0.3125 MG completed [facility] Estrogens, Conjugated (MCC) 0.625 MG/ML Vaginal Cream Conjugated Estrogens Conjugated Estrogens 04/21/2019 11:33:16 AM EDT 0.3125 MG completed [facility] 24 HR Diltiazem Hydrochloride 240 MG Ext ended Release Oral Capsule Diltiazem Hcl (Cardizem Cd) 240 mg capsule,extended release 24hr Diltiazem Hcl (Cardizem Cd) 240 mg capsule,extended release 24hr 03/28/2019 01:32:31 PM EDT 240 MG completed [facility] 24 HR Diltiazem Hydrochloride 240 MG Ext ended Release Oral Capsule Diltiazem Hcl (Cardizem Cd) 240 mg capsule,extended release 24hr Diltiazem Hcl (Cardizem Cd) 240 mg capsule,extended release 24hr 03/28/2019 01:32:31 PM EDT 240 MG completed [facility] Chlorthalidone 25 MG Oral Tablet Chlorthalidone 10/16/2018 11:22:00 AM EST 25 MG completed [facility] Insurance Providers Payer name Policy type / Coverage type Policy ID Covered republican ID Covered republican's relationship to monae Policy Monae Plan Information [employer] FED[employer] EMPLOYEE PROGRAM [id number] SP [id number] MEDICARE [id number] SP [id number] [employer] PROGRAM [id number] SP [id number] MEDICARE [id number] SP [id number] A BCBS of [facility] Other 0 [id number] F amily Dependent Jackie Vicente 0 BCBS of [facility] Other 0 [id number] F amily Dependent Jackie Vicente 0 BCBS of [facility] Other 0 [id number] F amily Dependent Jackie Vicente 0 BCBS of [facility] Other 0 [id number] F amily Dependent Jackie Vicente 0 BCBS of [facility] Other 0 [id number] F amily Dependent Jackie Vicente 0 [facility] of [place] [facility] [place] Other 0 [id number] F amily Dependent Jackie Vicente 0 BCBS of [facility] [place] Other 0 [id number] F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
[2021-06-11 14:38] LABS: BASO % 0.5 % (0.0-1.0); EOS # 0.2 10^3/uL (0.0-0.5); EOS % 2.9 % (0.0-3.0); HEMATOCRIT 47.9 % (36.0-47.0); HEMOGLOBIN 15.5 g/dl (12.0-15.5); LYMPH # 1.4 10^3/uL (1.5-5.0); LYMPH % 16.9 % (24.0-44.0); MEAN CORPUSCULAR HEMOGLOBIN 29.1 pg (27.0-33.0); MEAN CORPUSCULAR HGB CONC 32.4 g/dl (32.0-36.5); MEAN CORPUSCULAR VOLUME 89.9 fl (80.0-96.0); MONO # 0.7 10^3/uL (0.0-0.8); MONO % 9.2 % (2.0-8.0); NEUTROPHILS # 5.6 10^3/uL (1.5-8.5); NEUTROPHILS % 70.1 % (36.0-66.0); PLATELET COUNT, AUTOMATED 370 10^3/uL (150-450); RED BLOOD COUNT 5.33 10^6/uL (4.00-5.40)
--- NOTE | 2021-06-11 14:41 | REP ---
INDICATION: HTN COMPARISON: 03/28/2021 TECHNIQUE: Portable AP view of the chest FINDINGS: The mediastinum and cardiac silhouette are stable and within normal limits for portable technique. The lung ryan are clear without acute consolidation, effusion, or pneumothorax. Skeletal structures are intact. IMPRESSION: No acute cardiopulmonary process appreciated. <Electronically signed by Lauri Rosas > 06/11/21 [id number]
[2021-06-11 14:50] LABS: BLOOD UREA NITROGEN 26 MG/DL (7-18); CALCIUM LEVEL 9.2 MG/DL (8.8-10.2); CARBON DIOXIDE LEVEL 28 MEQ/L (21-32); CHLORIDE LEVEL 104 MEQ/L (98-107); CK-MB VALUE MASS 1.7 NG/ML (<3.6); CPK CREATINE PHOSPHOKINASE 36 U/L (26-192); CREATININE FOR GFR 1.11 MG/DL (0.55-1.30); FREE T4 0.98 NG/DL (0.76-1.46); GLOMERULAR FILTRATION RATE 50.9 (>39); GLUCOSE, FASTING 107 MG/DL (70-100); MB/CK RELATIVE INDEX 4.72 (< OR =4); POTASSIUM SERUM 3.4 MEQ/L (3.5-5.1); SODIUM LEVEL 141 MEQ/L (136-145); THYROID STIMULATING HORMONE 0.662 uIU/ML (0.358-3.740); TROPONIN I < 0.02 NG/ML (< 0.10)
--- OUTSIDE RECORDS SUMMARY | 2021-06-11 15:12 | CCD ---
Author Author [facility] Organization [facility] Address Unknown Phone Unavailable Care Team Providers Care Oxyacetylene Torch Operator Name Role Phone Renetta Wilcox MD Unavailable [...] Unavailable Unavailable Renetta Wilcox MD Unavailable Unavailable Renteta Wilcox MD Unavailable Unavailable Wilcox, Renetta Schaeffer [...] Wilcox, Renetta Schaeffer MD Unavailable Unavailable Wilcox, Rneetta Schaeffer MD Unavailable Unavailable Wilcox, Renetta Schaeffer [...] Wilcox MD Unavailable Unavailable Jovanni, A Fany FREIGHT BREAKER Unavailable Unavailable Jovanni, A Fany FREIGHT BREAKER Unavailable Unavailable Jovanni, A Fany FREIGHT BREAKER Unavailable Unavailable Jovanni, A Fany FREIGHT BREAKER Unavailable Unavailable Jovanni, A Fany FREIGHT BREAKER Unavailable Unavailable Jovanni, A Fany FREIGHT BREAKER Unavailable Unavailable Jovanni, A Fany FREIGHT BREAKER Unavailable Unavailable Jovanni, A Fany FREIGHT BREAKER Unavailable Unavailable Jovanni, A Fany FREIGHT BREAKER Unavailable Unavailable Jovanni, A Fany FREIGHT BREAKER Unavailable Unavailable Jovanni, A Fany FREIGHT BREAKER Unavailable Unavailable Jovanni, A Fany FREIGHT BREAKER Unavailable Unavailable Jovanni, A Fany FREIGHT BREAKER Unavailable Unavailable Jovanni, A Fany FREIGHT BREAKER Unavailable Unavailable Jovanni, A Fany FREIGHT BREAKER Unavailable Unavailable Jovanni, A Fany FREIGHT BREAKER Unavailable Unavailable Jovanni, A Fany FREIGHT BREAKER Unavailable Unavailable Jovanni, A Fany FREIGHT BREAKER Unavailable Unavailable Jovanni, A Fany FREIGHT BREAKER Unavailable Unavailable Jovanni, A Fany FREIGHT BREAKER Unavailable Unavailable Jovanni, A Fany FREIGHT BREAKER Unavailable Unavailable Jovanni, A Fany FREIGHT BREAKER Unavailable Unavailable Jovanni, A Fany FREIGHT BREAKER Unavailable Unavailable Jovanni, A Fany FREIGHT BREAKER Unavailable Unavailable Jovanni, A Fany FREIGHT BREAKER Unavailable Unavailable Jovanni, A Fany FREIGHT BREAKER Unavailable Unavailable Jovanni, A Fany FREIGHT BREAKER Unavailable Unavailable Jovanni, A Fany FREIGHT BREAKER Unavailable Unavailable Jovanni, A Fany FREIGHT BREAKER Unavailable Unavailable Jovanni, A Fany FREIGHT BREAKER Unavailable Unavailable Jovanni, A Fany FREIGHT BREAKER Unavailable Unavailable Jovanni, A Fany FREIGHT BREAKER Unavailable Unavailable Jovanni, A Fany FREIGHT BREAKER Unavailable Unavailable Jovanni, A Fany FREIGHT BREAKER Unavailable Unavailable Jovanni, A Fany FREIGHT BREAKER Unavailable Unavailable Jovanni, A Fany FREIGHT BREAKER Unavailable Unavailable Jovanni, A Fany FREIGHT BREAKER Unavailable Unavailable Jovanni, A Fany FREIGHT BREAKER Unavailable Unavailable Jovanni, A Fany FREIGHT BREAKER Unavailable Unavailable Jovanni, A Fany FREIGHT BREAKER Unavailable Unavailable Jovanni, A Fany FREIGHT BREAKER Unavailable Unavailable Jovanni, A Fany FREIGHT BREAKER Unavailable Unavailable Jovanni, A Fany FREIGHT BREAKER Unavailable Unavailable Jovanni, A Fany FREIGHT BREAKER Unavailable Unavailable Jovanni, A Fany FREIGHT BREAKER Unavailable Unavailable Jovanni, A Fany FREIGHT BREAKER Unavailable Unavailable Re-disclosure Warning The records that [...] is protected by Article 27-F of the [facility] Public Health law. If you continue you may have access to information: Regarding HIV / AIDS; Provided by facilities licensed or operated by the [facility] Office of Mental Health; or Provided by the [facility] Office for People With Developmental Disabilities. If such information is present, then the following [facility] mandated warning applies: This information has [...] law may result in a fine or halfway sentence or both. A general authorization for the release of medical or other information is NOT sufficient authorization for further disc losure. Allergies and Adverse Reactions Type Description Substance Reaction Status Data Source(s ) Food allergy No Known Food Allergies No Known Food Allergies [facility] Drug allergy ciprofloxacin Ciprofloxacin rash head to toe SV [facility] Family History Family Member Name Family Member Gender Family Member Status Date o f Status Description Data Source(s) Unknown Condition [facility] Unknown Condition [facility] Unknown Condition [facility] Unknown Condition [facility] Encounters Encounter Providers Location Date Indications Data Source(s ) Outpatient Attender: Fany Baig NP 05/31/2021 11:41:00 AM EDT R25.2,I10 [facility] R25.2,I10 Outpatient Attender: Fany Baig NPReferrer: Fany segal NP 05/11/2021 12:53:00 PM EDT - 05/11/2021 01:44:00 PM EDT [facility] Outpatient Attender: Fany Baig NPReferrer: Fany segal NP 03/31/2021 12:54:00 PM EDT - 03/31/2021 02:22:00 PM EDT [facility] Outpatient Attender: Fany Baig NPReferrer: Fany segal FREIGHT BREAKER 11/08/2020 02:10:00 PM EDT - 11/08/2020 02:41:00 PM EDT [facility] Outpatient Attender: Fany Jovanni FREIGHT BREAKER 05/04/2020 11:38:00 AM EDT I10,R13.10 [facility] I10,R13.10 Outpatient Attender: Fany Baig NPReferrer: Maksim Wilcox MD 05/04/2020 10:42:00 AM EDT - 05/04/2020 11:33:00 AM EDT [facility] Immunizations Vaccine Date Status Description Data Source(s) COVID-19 VACCINE Moderna 11/19/2020 12:00:00 AM EDT completed [facility] Vaccine Series Complete: YESThis Data wa s Submitted to [facility]. COVID-19 VACCINE Moderna 10/08/2020 12:00:00 AM EST completed [facility] Vaccine Series Complete: NOThis Data was Submitted to [facility]. Medications Medication Brand Name Start Date Product [...] 02:40 :48 PM EDT 15 MG active [facility] tramadol hydrochloride 50 MG Oral Tablet Tramadol Tramadol 12/27/2020 02:40:41 PM EDT 50 MG active [facility] 15 mg 12/27/2020 12:00:00 AM EDT tablet 90 TAKE ONE TABLET BY MOUTH EVERY DAY TAKE ONE TABLET BY MOUTH EVERY DAY SOLD: 12/30/2020 [facility] 50 mg 12/27/2020 12:00:00 AM [...] Metronidazole 11/11/2020 01:45:09 PM EDT 500 MG [facility] Metronidazole 500 MG Oral Tablet METRONIDAZOLE 11/11/2020 12:0 0:00 AM EDT tablet 14 TAKE ONE TABLET BY MOUTH TWICE A DAY 7 TAKE ONE TABLET BY MOUTH TWICE A DAY 7 SOLD: 11/12/2020 [facility] Chlorthalidone 25 MG Oral Tablet Chlorthalidone 11/09/2020 01:57:15 PM EDT 25 MG active [facility] 25 mg 11/09/2020 12:00:00 AM EDT [...] mg tablet 11/08/2020 02:14:54 PM EDT active [facility] Ruiz-JaiBif-S.Therm (Khloe-Bid) 1 billion cell- 25 0 mg tablet 11/08/2020 02:14:54 PM EDT active [facility] pantoprazole 40 MG Delayed Release Oral Tablet Pantoprazole Pantoprazole 11/08/2020 02:14:45 PM EDT active [facility] pantoprazole 40 MG Delayed Release Oral Tablet Pantoprazole Pantoprazole 11/08/2020 02:14:45 PM EDT active [facility] Ciprofloxacin Hcl 11/08/2020 02:14:26 PM EDT active [facility] Ciprofloxacin Hcl 11/08/2020 02:14:26 PM EDT completed [facility] 1 billion cell- 250 mg 11/02/2020 [...] TABLET BY MOUTH EVERY DAY SOLD: 11/03/2020 [facility] meloxicam 15 MG Oral Tablet Meloxicam Meloxicam 09/06/2020 03:01 :42 PM EST 15 MG completed [facility] meloxicam 15 MG Oral Tablet Meloxicam Meloxicam 09/06/2020 03:01 :42 PM EST 15 MG active [facility] tramadol hydrochloride 50 MG Oral Tablet Tramadol Tramadol 09/06/2020 07:44:32 AM EST 50 MG active [facility] tramadol hydrochloride 50 MG Oral Tablet Tramadol Tramadol 09/06/2020 07:44:32 AM EST 50 MG completed [facility] 50 mg 09/06/2020 12:00:00 AM EST tablet 90 TAKE ONE TABLET BY MOUTH THREE TIMES A DAY NEEDED MAXIMUM DAILY DOSE = 3 TABLETS TAKE ONE TABLET BY MOUTH THREE TIMES A DAY NEEDED MAXIMUM DAILY DOSE = 3 TABLETS SOLD: 11/23/2020 [facility] 15 mg 09/06/2020 12:00:00 AM EST [...] DAILY DOSE = 3 TABLETS SOLD: 09/09/2020 [facility] tramadol hydrochloride 50 MG Oral Tablet Tramadol Tramadol 05/04/2020 11:34:37 AM EDT 50 MG completed [facility] tramadol hydrochloride 50 MG Oral Tablet Tramadol Tramadol 05/04/2020 11:34:37 AM EDT 50 MG completed [facility] Pravastatin Sodium 20 MG Oral Tablet Pravastatin 05/04/2020 11:34: 13 AM EDT 20 MG active [facility] Pravastatin Sodium 20 MG Oral Tablet Pravastatin 05/04/2020 11:34: 13 AM EDT 20 MG active [facility] meloxicam 15 MG Oral Tablet Meloxicam Meloxicam 05/04/2020 11:34 :03 AM EDT 15 MG completed [facility] meloxicam 15 MG Oral Tablet Meloxicam Meloxicam 05/04/2020 11:34 :03 AM EDT 15 MG completed [facility] 24 HR Diltiazem Hydrochloride 240 MG Ext ended Release Oral Capsule Diltiazem Hcl (Cardizem Cd) 240 mg capsule,extended release 24hr Diltiazem Hcl (Cardizem Cd) 240 mg capsule,extended release 24hr 05/04/2020 11:33:56 AM EDT 240 MG active [facility] 24 HR Diltiazem Hydrochloride 240 MG Ext ended Release Oral Capsule Diltiazem Hcl (Cardizem Cd) 240 mg capsule,extended release 24hr Diltiazem Hcl (Cardizem Cd) 240 mg capsule,extended release 24hr 05/04/2020 11:33:56 AM EDT 240 MG active [facility] Estrogens, Conjugated (ASSISTED) 0.625 MG/ML Vaginal Cream Conjugated Estrogens Conjugated Estrogens 05/04/2020 11:33:52 AM EDT 0.3125 MG active [facility] Estrogens, Conjugated (ASSISTED) 0.625 MG/ML Vaginal Cream Conjugated Estrogens Conjugated Estrogens 05/04/2020 11:33:52 AM EDT 0.3125 MG active [facility] Omeprazole Magnesium 05/04/2020 11:32:47 AM EDT 20 MG [facility] Omeprazole Magnesium 05/04/2020 11:32:47 AM EDT 20 MG [facility] Omeprazole Magnesium 05/04/2020 11:32:47 AM EDT 20 MG active [facility] 50 mg 05/04/2020 12:00:00 AM EDT [...] 01/02/2020 08:47:31 AM EDT 50 MG completed [facility] tramadol hydrochloride 50 MG Oral Tablet Tramadol Tramadol 01/02/2020 08:47:31 AM EDT 50 MG completed [facility] meloxicam 15 MG Oral Tablet Meloxicam Meloxicam 12/30/2019 04:13 :49 PM EDT 15 MG completed [facility] meloxicam 15 MG Oral Tablet Meloxicam Meloxicam 12/30/2019 04:13 :49 PM EDT 15 MG completed [facility] Azithromycin (Zithromax) 250 mg tablet 11/21/2019 12:47:52 PM ED T 0 completed [facility] Azithromycin (Zithromax) 250 mg tablet 11/21/2019 12:47:52 PM ED T 0 completed [facility] Azithromycin (Zithromax) 250 mg tablet 11/21/2019 12:47:52 PM ED T 0 completed [facility] Pravastatin Sodium 20 MG Oral Tablet Pravastatin 09/18/2019 11:02: 02 AM EST 20 MG completed [facility] Pravastatin Sodium 20 MG Oral Tablet Pravastatin 09/18/2019 11:02: 02 AM EST 20 MG completed [facility] Ranitidine 150 MG Oral Capsule Ranitidine Hcl Ranitidine Hcl 09/18/2019 11:01:57 AM EST 150 MG completed [facility] Ranitidine 150 MG Oral Capsule Ranitidine Hcl Ranitidine Hcl 09/18/2019 11:01:57 AM EST 150 MG completed [facility] Ranitidine 150 MG Oral Capsule Ranitidine Hcl Ranitidine Hcl 09/18/2019 11:01:57 AM EST 150 MG completed [facility] Estrogens, Conjugated (ASSISTED) 0.625 MG/ML Vaginal Cream Conjugated Estrogens Conjugated Estrogens 04/21/2019 11:33:16 AM EDT 0.3125 MG completed [facility] Estrogens, Conjugated (ASSISTED) 0.625 MG/ML Vaginal Cream Conjugated Estrogens Conjugated Estrogens 04/21/2019 11:33:16 AM EDT 0.3125 MG completed [facility] 24 HR Diltiazem Hydrochloride 240 MG Ext ended Release Oral Capsule Diltiazem Hcl (Cardizem Cd) 240 mg capsule,extended release 24hr Diltiazem Hcl (Cardizem Cd) 240 mg capsule,extended release 24hr 03/28/2019 01:32:31 PM EDT 240 MG completed [facility] 24 HR Diltiazem Hydrochloride 240 MG Ext ended Release Oral Capsule Diltiazem Hcl (Cardizem Cd) 240 mg capsule,extended release 24hr Diltiazem Hcl (Cardizem Cd) 240 mg capsule,extended release 24hr 03/28/2019 01:32:31 PM EDT 240 MG completed [facility] Chlorthalidone 25 MG Oral Tablet Chlorthalidone 10/16/2018 11:22:00 AM EST 25 MG completed [facility] Insurance Providers Payer name Policy type / Coverage type Policy ID Covered green party ID Covered green party's relationship to monae Policy Monae Plan Information [employer] FED[employer] EMPLOYEE PROGRAM [id number] SP [id number] MEDICARE [id number] SP [id number] [employer] [id number] SP [id number] MEDICARE [id number] SP [id number] A BCBS of [facility] Other 0 [id number] F amily Dependent Jackie Vicente 0 BCBS of [facility] Other 0 [id number] F amily Dependent Jackie Vicente 0 [facility] Other 0 [id number] F amily Dependent Jackie Vicente 0 [facility] Other 0 [id number] F amily Dependent Jackie Vicente 0 [facility] Other 0 [id number] F amily Dependent Jackie Vicente 0 [place] of [place] Other 0 [id number] F amily Dependent Jackie Vicente 0 BCBS of [facility] Other 0 [id number] F amily Dependent Jackie Vicente 0 BCBS of [facility] Other 0 [id number] F amily Dependent Jackie Vicente 0 BCBS of [facility] Other 0 [id number] F amily Dependent Jackie Vicente 0 BCBS of [facility] Other 0 [id number] F amily Dependent Jackie Vicente 0 MEDICARE C [id number] S [id number] A BC BS [place] FEDERAL B [id number] P [id number] BCBS of [facility] Other 0 [id number] F amily Dependent Jackie Vicente 0 BCBS of [facility] Other 0 [id number] F amily Dependent Jackie Vicente 0 [employer] FEDERAL [id number] Problems, Conditions, and Diagnoses No Information Surgeries/Procedures No Information Results ID Date Data Source [id number] 05/31/2021 11:59:00 AM EDT [facility] Name Value Range Interpretation Code Description Data Tanisha rce(s) Supporting Document(s) Leukocytes [#/volume] in Blood by Automated count 7.8 10*3/uL 4.45-10 .71 [facility] Erythrocytes [#/volume] in Blood by Automated count 5.16 10*6/uL 4.20 -5.40 [facility] Hemoglobin [Moles/volume] in Blood 15.6 g/dL 10.7-15.4 Above high n ormal [facility] Hematocrit [Volume Fraction] of Blood by Automated count 47.6 % 37-47 Above high normal [facility] Erythrocyte mean corpuscular volume [Ent itic volume] in Cord blood by Automated count 92 fL 80-96 N [facility] ital Erythrocyte mean corpuscular hemoglobin [Entitic mass] by Au tomated count 30 pg 27-31 N [facility] Erythrocyte mean corpuscular hemoglobin concentration [Mass/volume] in Cord blood 33 g/dL 33-37 N [facility] ital Erythrocyte distribution width [Entitic volume] by Automated count 13 % 11-15 N [facility] Platelets [#/volume] in Blood by Automated count 344 10*3/uL 130-472 N [facility] Platelet mean volume [Entitic volume] in Blood 9.5 fL 9.1-13.1 N [facility] Neutrophils/100 leukocytes in Blood by Automated count 65.5 % 41- 77 N [facility] Neutrophils [#/volume] in Blood by Automated count 5.1 U 1.7-7.6 N [facility] Lymphocytes/100 leukocytes in Blood by Automated count 18.4 % 14- 46 N [facility] Lymphocytes [#/volume] in Blood by Automated count 1.4 U 0.6-4.6 N [facility] Monocytes/100 leukocytes in Blood by Automated count 11.3 % 4-12 N [facility] Monocytes [#/volume] in Blood by Automated count 0.9 U 0.2-1.2 N [facility] Eosinophils/100 leukocytes in Blood by Automated count 3.9 % 0-7 N [facility] Eosinophils [#/volume] in Blood by Automated count 0.3 U 0.0-0.5 N [facility] Basophils/100 leukocytes in Blood by Automated count 0.6 % 0.4-1 .3 N [facility] Basophils [#/volume] in Blood by Automated count 0.1 U 0.0-0.2 N [facility] NUCLEATED RED BLOOD CELL 0 % [facility] NUCLEATED RED BLOOD CELL# [address] [facility] Immature granulocytes [Presence] in Blood by Automated count 0-2 N [facility] Immature granulocytes [#/volume] in Blood by Automated count 0.0 U 0-0.1 N [facility] Manual Differential panel - Blood NO [facility] ID Date Data Source [id number] 05/31/2021 12:44:00 PM EDT [facility] Name Value Range Interpretation Code Description Data Tanisha rce(s) Supporting Document(s) Urea nitrogen [Mass/volume] in Serum or Plasma 24 mg/dL 9-23 Above high normal [facility] Sodium [Moles/volume] in Serum or Plasma 143 mmol/L 132-146 N [facility] Potassium [Moles/volume] in Serum or Plasma 3.7 mmol/L 3.5-5.5 N [facility] Chloride [Moles/volume] in Serum or Plasma 106 mmol/L 99-109 N [facility] Carbon dioxide, total [Moles/volume] in Serum or Plasma 30 mmol/L 20 -31 N [facility] Anion gap in Serum or Plasma 11 mmol/L 8-16 [facility] Glucose [Mass/volume] in Serum or Plasma 99 mg/dL 74-106 N [facility] Creatinine 1.0 mg/dL 0.5-1.1 [facility] Glomerular filtration rate/1.73 sq M.pre dicted [Volume Rate/Area] in Serum or Plasma 54 ml/min ABOVE 60 [facility] ital Alanine aminotransferase [Enzymatic acti vity/volume] in Serum or Plasma by With P-5'-P 15 U/L 10-49 [facility] ital Aspartate aminotransferase [Enzymatic ac tivity/volume] in Serum or Plasma by With P-5'-P 18 U/L 0-33 [facility] pital Alkaline phosphatase [Enzymatic activity/volume] in Serum or Plasma 89 U/L 45-129 [facility] Calcium [Mass/volume] in Serum or Plasma 9.7 mg/dL 8.5-10.1 [facility] Bilirubin.total [Mass/volume] in Serum or Plasma 0.9 mg/dL 0.3-1.2 [facility] Albumin [Mass/volume] in Serum or Plasma by Bromocresol purple (BCP) dye binding method 4.3 g/dL 3.2-4.8 [facility] ital Protein [Mass/volume] in Serum or Plasma 7.7 g/dL 5.7-8.2 [facility] ID Date Data Source [id number] 05/31/2021 12:44:00 PM EDT [facility] Name Value Range Interpretation Code Description Data Tanisha rce(s) Supporting Document(s) Triglycerides 209 mg/dL 0-150 Above high normal [facility] Cholesterol 298 mg/dL 120-200 Above high normal [facility] HDL Cholesterol 75 mg/dL [facility] HDL Less than 40 mg/dL: Major risk for CHDHDL Greater than 59 mg/dL: Low risk for CHD LDL Cholesterol, Calc 182 mg/dL 0-100 Above high normal [facility] ID Date Data Source [id number] 05/31/2021 12:44:00 PM EDT [facility] Name Value Range Interpretation Code Description Data Tanisha rce(s) Supporting Document(s) Magnesium [Mass/volume] in Serum or Plasma 2.4 mg/dL 1.3-2.7 N [facility] ID Date Data Source [id number] 05/11/2021 01:01:00 PM EDT [facility] Patient Name: Pierre Vicente OB: 1945 Sex: F Pt Unit #: [id number] Location:[facility]. Provider: Visit Date/Time: 05/11/21 Primary Insurance: [...] depressed, or hopeless: several days (lost in [facility]) Total score: 1 HIV Testing Offer - [...] Otherwise, doing okay. Sees a dentist in [place], [place]. Has an appt with Cardiology on Jun 22. 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: No water heater temp set < [...] R25.2 - Cramp and spasm SNOMED Code(s): 64234798 Category: Medical (3) Essential hypertension: Status: Acute Code(s): I10 - Essential (primary) hypertension SNOMED Code(s): 91591352 Category: Medical Orders: Orders CMP 1 Week [...] and spasm Coding Level of Care Code 83719 Well > 64 yrs (Est) Exam Detailed Diagnoses Encounter for annual health examination Z00.00 Muscle cramps R25.2 Essential hypertension I10 Additional Codes Intake - Is patient in pain?: Yes (1125F) <Electronically signed by Fany Baig NP> 05/11/21 1344 Name Value Range Interpretation Code Description Data Tanisha rce(s) Supporting Document(s) ID Date Data Source [id number] 03/31/2021 01:29:00 PM EDT [facility] Patient Name: Pierre Vicente OB: 1945 Sex: F Pt Unit #: [id number] Location:[facility] Provider: Visit Date/Time: 03/31/21 Primary Insurance: BC/BS [employer] EM[employer]YE[employer] Secondary Insurance: Self Pay Intake Vital Signs 03/31/21 13:34 Current Weight 145 lb Weight Measurement Method Stated by Patient BP 112/70 Blood Pressure Location Lt brachial Position Sitting Respiration 22 Pulse 86 Pulse Source Pulse Oximeter Temp 98.5 F Temp Source Oral Pulse Oximetry (%) 95 Intake Visit Reasons: ER Follow-up (Adult) Nurse Note: [facility] ER visit F/U- HTN and chest pain while there. No further chest pain. Bp been -871 over 83. Couple times been running 120/79-80. [...] for follow up on ER visit at [facility] for chest pain and HTN. She is also having some pain with her right knee. She reports that she twisted it a couple weeks ago, it is getting better. She has is wrapped with RYANNE. Furthermore, she has started her chlorthalidone and is still taking her Cardizem. Feeling better, overall. 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 No concerns. I would like her to be evaluated by a chief crna due to recent episode. This she is agreeable to. (2) Right knee pain: Status: Acute Code(s): M25.561 - Pain in right knee SNOMED Code(s): 1465949467 Category: Medical Plan: Not interested in any work up at this time. She will be back in next month, if not better than she really should have imaging. Orders: Referrals Cardiology Referral I10 - Essential (primary) hypertension, R07.9 - Chest pain, unspecified Orders Instructions: DASH Eating Plan (GEN) Hypertension (GEN) Coding Level of Care Code 29814 Est Pt Intermediate Comp Exam Problem Focused Diagnoses Hypertension I10 Right knee pain M25.561 <Electronically signed by Fany Baig FREIGHT BREAKER> 03/31/21 1432 Name Value Range Interpretation Code Description Data Tanisha rce(s) Supporting Document(s) ID Date Data Source [id number] 11/08/2020 02:09:00 PM EDT [facility] Patient Name: Pierre Vicente OB: 1945 Sex: F Pt Unit #: [id number] Location:[facility] Provider: Visit Date/Time: 11/08/20 Primary Insurance: BC/BS [...] discharge follow up. She was admitted to [facility] 10/30/20 with colitis and discharged on 11/02/20. 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 Specialist Required: No Accompanied by: Self / Same [...] hungry until evening. Denies blood in stool. 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 Coding Level of Care Code 14552 Est Pt Intermediate Comp Exam Expanded Problem Focused Diagnoses Hospital discharge follow-up Z09 Colitis K52.9 Skin tear <Electronically signed by Fany Baig FREIGHT BREAKER> 11/08/20 1457 Name Value Range Interpretation Code Description Data Tanisha rce(s) Supporting Document(s) ID Date Data Source [id number] 10/30/2020 04:55:00 PM EST [facility] Name Value Range Interpretation Code Description Data Tanisha rce(s) Supporting Document(s) SARS coronavirus 2 RNA [Presence] in Res piratory specimen by LALY with probe detection NEGATIVE [facility] This lab was ordered by [facility] a nd reported by [facility]. ID Date Data Source [id number] 05/04/2020 12:51:00 PM EDT [facility] Name Value Range Interpretation Code Description Data Tanisha rce(s) Supporting Document(s) Urea nitrogen [Mass/volume] in Serum or Plasma 22 mg/dL 9-23 N [facility] Sodium [Moles/volume] in Serum or Plasma 143 mmol/L 132-146 N [facility] Potassium [Moles/volume] in Serum or Plasma 3.8 mmol/L 3.5-5.5 N [facility] Chloride [Moles/volume] in Serum or Plasma 108 mmol/L 99-109 N [facility] Carbon dioxide, total [Moles/volume] in Serum or Plasma 30 mmol/L 20 -31 N [facility] Anion gap in Serum or Plasma 9 mmol/L 8-16 N [facility] Glucose [Mass/volume] in Serum or Plasma 102 mg/dL 74-106 N [facility] Creatinine 0.9 mg/dL 0.5-1.1 N [facility] Glomerular filtration rate/1.73 sq M.pre dicted [Volume Rate/Area] in Serum or Plasma Greater Than 60 ABOVE 60 [facility] Alanine aminotransferase [Enzymatic acti vity/volume] in Serum or Plasma by With P-5'-P 13 U/L 10-49 N [facility] ital Aspartate aminotransferase [Enzymatic ac tivity/volume] in Serum or Plasma by With P-5'-P 14 U/L 0-33 N [facility] pital Alkaline phosphatase [Enzymatic activity/volume] in Serum or Plasma 85 U/L 45-129 N [facility] Calcium [Mass/volume] in Serum or Plasma 9.5 mg/dL 8.5-10.1 N [facility] Bilirubin.total [Mass/volume] in Serum or Plasma 0.8 mg/dL 0.3-1.2 N [facility] Albumin [Mass/volume] in Serum or Plasma by Bromocresol purple (BCP) dye binding method 4.2 g/dL 3.2-4.8 N [facility] ital Protein [Mass/volume] in Serum or Plasma 7.4 g/dL 5.7-8.2 [facility] ID Date Data Source [id number] 05/04/2020 12:51:00 PM EDT [facility] Name Value Range Interpretation Code Description Data Tanisha rce(s) Supporting Document(s) Triglycerides 194 mg/dL 0-150 Above high normal [facility] Cholesterol 276 mg/dL 120-200 Above high normal [facility] HDL Cholesterol 82 mg/dL [facility] HDL Less than 40 mg/dL: Major risk for CHDHDL Greater than 59 mg/dL: Low risk for CHD LDL Cholesterol, Calc 156 mg/dL 0-100 Above high normal [facility] ID Date Data Source [id number] 05/04/2020 12:51:00 PM EDT [facility] Name Value Range Interpretation Code Description Data Tanisha rce(s) Supporting Document(s) Thyrotropin [Units/volume] in Serum or Plasma by Detec tion limit <= 0.005 mIU/L 1.41 u[iU]/mL 0.35-5.50 [facility] ID Date Data Source [id number] [facility] : 1945 Sex: F Pt Unit #: [id number] Location:[facility] Provider: Visit Date/Time: 05/04/20 Primary Insurance: BC/BS [...] - Pt chooses not to have Mammo- 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 Required: No Accompanied by: Self / Same [...] Eye regularly, but has not been since [facility] - Fall Risk History of falls: [...] Screening Screening Have you traveled outside of [facility] [address] or [facility] in the last 14 days.: No Has patient experienced coronavirus symptoms: No [facility] Medical History (Updated 05/04/20 @ 13:00 by [...] never substance use type: does not use michaela/buddhism: Denominational seatbelt use: always drive intox or ride w/ intox 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 (2) Hypertension: Status: None SNOMED Code(s): 29352454 Category: Medical Plan - Fany Baig NP: Well- controlled. Refills sent in. Labs ordered. 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 She notes that she sometimes [...] PM EDT Never smoker completed Never s [facility] Smoking 03/31/2021 01:32:00 PM EDT Never smoker completed Never s [facility]
[2021-06-11 16:00] VITALS: BP 158/74
[2021-06-11 16:06] LABS: MAGNESIUM LEVEL 2.3 MG/DL (1.8-2.4)
--- NOTE | 2021-06-12 19:28 | ECGEPIP ---
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 Order Number: [id number] Reading MD: Kristopher Morris Measurements Intervals [place] Rate: 82 P: 40 MN: 132 QRS: -13 QRSD: 72 T: -5 QT: 404 QTc: 472 Interpretive Statements Sinus rhythm with premature supraventricular complexes and with occasional premature ventricular complexes BASELINE ARTIFACT AFFECTS INTERPRETATION Electronically Signed on 06-12-2021 19:27:50 EDT by Kristopher Morris
== END 2021-06-11 16:36 | disposition home or self-care (01) ==
LOC: M ED 13:03
DX: I10 Essential (primary) hypertension (principal); I49.1 Atrial premature depolarization; J45.909 Unspecified asthma, uncomplicated; K21.9 Gastro-esophageal reflux disease without esophagitis; Z79.899 Other long term (current) drug therapy; Z88.1 Allergy status to other antibiotic agents

== ENCOUNTER 2023-02-03 11:26 | Emergency (ER) | payer BC ==
[~2023-02-03] VITALS: Ht 144.8 cm; Wt 68.5 kg
[2023-02-03] MEDS ORDERED: GABA-1171 (11:38)
[2023-02-03] MEDS ORDERED: POTA1TAB23 (11:38)
[2023-02-03] MEDS ORDERED: OMEP-173 (11:38)
[2023-02-03] MEDS ORDERED: MELO7.5T35 (11:38)
[2023-02-03] MEDS ORDERED: ACETAMINOPHEN TAB 650MG DOSE (2X325MG) PO ONE (12:20)
[2023-02-03] MEDS ORDERED: traMADol 50 MG TAB PO ONE (12:20)
[2023-02-03 13:20] VITALS: TEMP 98.2; O2SAT 98
[2023-02-03 13:33] VITALS: BP 176/80
== END 2023-02-03 13:40 | disposition home or self-care (01) ==
LOC: M ED 11:26
DX: S52.501A Unspecified fracture of the lower end of right radius, initial encounter for closed fracture (principal); W01.0XXA Fall on same level from slipping, tripping and stumbling without subsequent striking against object, initial encounter; Y92.009 Unspecified place in unspecified non-institutional (private) residence as the place of occurrence of the external cause; Y93.01 Activity, walking, marching and hiking; Y99.8 Other external cause status; Z88.1 Allergy status to other antibiotic agents; Z79.899 Other long term (current) drug therapy